=== PATIENT | male | born 1955 | race Caucasian/White ===

== ENCOUNTER 2018-02-04 17:33 | Inpatient (IN) | END 2018-02-12 19:20 | disposition home or self-care (01) | DRG 580 ==

== ENCOUNTER 2019-03-31 23:54 | Emergency (ER) | payer OTHER ==
[~2019-03-31] VITALS: Ht 154.9 cm; Wt 70.3 kg
[~2019-03-31 23:54] MED LIST: AMLO-145; BENA40TA56; HYDR-4011 PO; LEVO500T10 PO; LINA5TAB; Vancomycin Iv Per Pharmacy XX
[2019-04-01 00:02] VITALS: Ht 154.9 cm; Wt 70.3 kg
[2019-04-01] MEDS ORDERED: ONDANSETRON 4 MG INJ IV ONE (01:48)
[2019-04-01] MEDS ORDERED: SOD CHLORIDE 0.9% 500 ML IV ONE (02:00)
[2019-04-01] MEDS ORDERED: POLY17PO6 PO (03:42)
[2019-04-01] MEDS ORDERED: HYDR-842 PO (03:42)
--- NOTE | 2019-04-01 03:48 | ERD ---
ER Documentation Chief Complaint Chief Complaint nausea, vomiting, weak started this afternoon. hx liver tumor on chemo, HPI This is a pleasant 63-year-old male presents for nausea and vomiting and generalized weakness. History is significant for liver cancer, he is currently on chemotherapy, he denies any chest pain or shortness of breath. He has not had a fever. He denies any significant abdominal pain, his symptoms are inte rmittent. He has had no hematemesis ROS All systems reviewed and are negative except as per history of present illness. Medications Home Meds Active Scripts Polyethylene Glycol* (Miralax*) 17 Gm Powd.pack, 17 GM PO DAILY, #7 Prov:TIA LOPEZ MD 04/01/19 Hydroxyzine Hcl* (Atarax*) 25 Mg Tab, 25 MG PO Q6H PRN for ITCHING for 14 Days, TAB Prov:TIA LOPEZ MD 04/01/19 [Vancomycin Iv Per Pharmacy] 1 EA EACH No Conflict Check, 0 EA XX .PER PROTOCOL for 42 Days Prov:CARLIE CARDONA NP 02/12/18 Hydrocodone/Acetaminophen ([place] 5-325 Tablet) 1 Each Tablet, 1 EACH PO Q4, #30 TAB Prov:CARLIE CARDONA NP 02/12/18 Levofloxacin* (Levofloxacin*) 500 Mg Tablet, 500 MG PO DAILY, #42 TAB Prov:CARLIE CARDONA NP 02/12/18 Reported Medications Linagliptin (TRADJENTA) 5 Mg Tablet, 1, #30 02/04/18 Amlodipine Besylate* (Amlodipine Besylate*) 5 Mg Tablet, 1 TAB, #30 18 Benazepril Hcl* (Benazepril Hcl*) 40 Mg Tablet, 1 TAB, #30 18 Allergies Allergies: Coded Allergies: No Known Allergies (Verified Allergy, Unknown, 02/04/18) PMhx/Soc History of Surgery: Yes (3 laser on right eye, 2 laser on left eye, ret inoplasa, loose retina,) Anesthesia Reaction: Yes Hx Neurological Disorder: No Hx Respiratory Disorders: No Hx Cardiac Disorders: No Hx Psychiatric Problems: No Hx Miscellaneous Medical Probl: No Hx Alcohol Use: No Hx Substance Use: No Hx Tobacco Use: No Smoking Status: Never smoker Physical Exam Vitals Vital Signs Date Temp Pulse Resp B/P (MAP) Pulse Ox O2 O2 Flow FiO2 Time Delivery Rate 04/01/19 81 18 175/83 100 Room Air 01:15 (113) 04/01/19 Nasal 00:56 Cannula 04/01/19 98.4 89 16 204/90 100 00:02 (128) Physical Exam Const: Actively vomiting Head: Atraumatic Eyes: Normal Conjunctiva ENT: Normal External Ears, Nose and Mouth. Neck: Full range of motion. No meningismus. Resp: Clear to auscultation bilaterally Cardio: Regular rate and rhythm, no murmurs Abd: Soft, non tender, non distended, no rebound or guarding. Normal bowel sounds Skin: No petechiae or rashes Back: No midline or flank tenderness Ext: No cyanosis, or edema Neur: Awake and alert Psych: Normal Mood and Affect Result Diagram: 04/01/1911604/01/19116 Results 24 hrs Laboratory Tests Test 04/01/19 01:17 04/01/19 01:20 04/01/19 01:31 White Blood Count 3.7 10^3/ul Red Blood Count 2.77 10^6/ul Hemoglobin 8.2 g/dl Hematocrit 23.3 % Mean Corpuscular Volume 84.1 fl Mean Corpuscular Hemoglobin 29.6 pg Mean Corpuscular 35.2 g/dl Hemoglobin Concent Red Cell Distribution Width 14.8 % Platelet Count 74 10^3/UL Mean Platelet Volume 10.5 fl Immature Granulocytes % 0.300 % Neutrophils % 65.0 % Lymphocytes % 19.0 % Monocytes % 12.3 % Eosinophils % 2.9 % Basophils % 0.5 % Nucleated Red Blood Cells % 0.0 /100WBC Immature Granulocytes # 0.010 10^3/ul Neutrophils # 2.4 10^3/ul Lymphocytes # 0.7 10^3/ul Monocytes # 0.5 10^3/ul Eosinophils # 0.1 10^3/ul Basophils # 0.0 10^3/ul Nucleated Red Blood Cells # 0.0 10^3/ul Prothrombin Time 15.1 Sec Prothrombin Time Ratio 1.2 INR International 1.18 Normalized Ratio Activated Partial Thromboplast 37.5 Sec Time Sodium Level 131 mmol/L Potassium Level 4.6 mmol/L Chloride Level 100 mmol/L Carbon Dioxide Level 20 mmol/L Anion Gap 11 Blood Urea Nitrogen 27 mg/dl Creatinine 2.30 mg/dl Est Glomerular Filtrat 29 mL/min Rate mL/min Glucose Level 97 mg/dl Calcium Level 8.8 mg/dl Total Bilirubin 0.7 mg/dl Direct Bilirubin 0.00 mg/dl Indirect Bilirubin 0.7 mg/dl Aspartate Amino 37 IU/L Transf (AST/SGOT) Alanine 36 IU/L Aminotransferase (ALT/SGPT) Alkaline Phosphatase 284 IU/L Troponin I < 0.012 ng/ml Total Protein 7.9 g/dl Albumin 3.7 g/dl Globulin 4.20 g/dl Albumin/Globulin Ratio 0.88 POC Venous Lactate 1.4 mmol/L Urine Color YELLOW Urine Clarity CLEAR Urine pH 6.0 Urine Specific [place] 1.005 Urine Ketones NEGATIVE mg/dL Urine Nitrite NEGATIVE mg/dL Urine Bilirubin NEGATIVE mg/dL Urine Urobilinogen NEGATIVE mg/dL Urine Leukocyte Esterase NEGATIVE Karthik/ul Urine Microscopic RBC 1 /HPF Urine Microscopic WBC 0 /HPF Urine Hemoglobin NEGATIVE mg/dL Urine Glucose NEGATIVE mg/dL Urine Total Protein 2+ mg/dl Current Medications Medications Dose Sig/Jasper Start Time Status Last (Trade) Ordered Route PRN Stop Time Admin Dose Reason Admin Ondansetron 4 mg ONCE ONCE 04/01/19 DC HCl (Zofran IV 01:48 Inj) 04/01/19 01:49 Sodium 500 ml @ Q1H ONCE 04/01/19 DC 04/01/19 Chloride 500 mls/hr IV 02:00 01:58 04/01/19 02:59 Procedures/MDM 63-year-old male with a history of liver cancer presents for nausea and vomiting. I suspect that his symptoms are most likely related to his current treatment with chemotherapy. Patient was hydrated, and given antiemetics, he had relief in his symptoms. He did not have any abdominal pain, he had no fever, and a CT abdomen pelvis was negative. On reassessment, the patient felt significantly better and wished to go home, he endorsed generalized pruritus and a prescription for Atarax was prescribed, as well as MiraLAX for bowel regimen. At discharge she was in no distress. EKG: Rate/Rhythm: Normal Sinus Rhythm QRS, ST, T-waves: No changes consistent w/ acute ischemia Impression: No evidence of ischemia or arrhythmia Departure Diagnosis: Primary Impression: Nausea and vomiting Vomiting type: unspecified Vomiting Intractability: unspecified Qualified Codes: R11.2 - Nausea with vomiting, unspecified Condition: Stable Patient Instructions: Nausea and Vomiting-Adult Additional Instructions: Call your primary care doctor TOMORROW for an appointment during the next 2-3 days.See the doctor sooner or return here if your condition worsens before your appointment time. TIA LOPEZ MD Apr 01, 2019 03:48
[2019-04-01 04:20] VITALS: BP 160/80; PULSE 78; RESP 14
== END 2019-04-01 04:30 | disposition home or self-care (01) ==
LOC: E/R 23:54
DX: R11.2 Nausea with vomiting, unspecified (principal); C22.8 Malignant neoplasm of liver, primary, unspecified as to type; R07.9 Chest pain, unspecified; R10.9 Unspecified abdominal pain
CPT/HCPCS: 36415; 71045; 74176; 80053; 81001; 83605; 84484; 85025; 85610; 85730; 87040; 87086; 93005; J7040; Z7502; Z7610

== ENCOUNTER 2019-04-14 08:32 | Inpatient (IN) | payer OTHER ==
[~2019-04-14] VITALS: Ht 157.5 cm; Wt 66.2 kg
[~2019-04-14 08:32] MED LIST changes: +ALLO100T PO; +AMLO-147 PO; +AMOX1TAB PO; +HYDR-842 PO; +LENVIMA ORAL; +LINA5TAB PO; +LOSA25TA12 PO; +ONDA4TAB95 PO; +PANT40TA3 PO; +PENT400T9 PO; +POLY17PO6 PO; +TRAM50TA PO
[2019-04-14 18:20] VITALS: Ht 157.5 cm; Wt 66.2 kg
[2019-04-14 18:39] VITALS: BP 160/86; PULSE 79; RESP 18
[2019-04-14] MEDS ORDERED: CLONIDINE 0.2 MG/24 HR PATCH TRANSDERM SCH (19:30)
[2019-04-14] MEDS: DEXTROSE 5%-0.45% NACL 1,000 ML IV SCH (19:54)
[2019-04-14] MEDS: ONDANSETRON 4 MG INJ IV PRN (20:11)
[2019-04-14] MEDS: hydrALAzine 20 MG INJ IV PRN (20:12)
[2019-04-14 20:51] VITALS: BP 153/76; PULSE 80; RESP 19
[2019-04-14] MEDS: OCTREOTIDE 500 MCG in DEXTROSE 5% 49 ML IV SCH (20:53)
[2019-04-14 23:56] VITALS: BP 164/78; PULSE 79; RESP 19
[2019-04-15] VITALS (17 sets, daily range): BP systolic 80–188; BP diastolic 58–82; PULSE 72–93; RESP 16–20
[2019-04-15] MEDS: hydrALAzine 20 MG INJ IV PRN ×3 (00:03→19:44)
[2019-04-15] MEDS: ACCU-CHEK XX SCH (02:00)
--- NOTE | 2019-04-15 02:51 | CONS ---
DATE OF ADMISSION: 04/14/2019 DATE OF CONSULTATION: HISTORY OF PRESENT ILLNESS: The patient is a 63-year-old male who was originally at [facility] for hematemesis. He received blood transfusion and subsequently got transferred to this facility f or insurance purposes. The patient is also known to have a hepatoma, which is 7 cm in diameter, and is being treated with oral medication. Denies melena. 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 He required 2 units of packed cell RBC transfusion. SOCIAL HISTORY: He used to drink alcohol. ALLERGIES: NONE. REVIEW OF SYSTEMS: Negative. PHYSICAL EXAMINATION: GENERAL: Alert, awake, ambulating, not in distress. VITAL SIGNS: Stable. HEENT: Unremarkable. NECK: Supple, no thyromegaly, no lymphadenopathy. CARDIOVASCULAR: No murmur, gallop or click. LUNGS: Clear. ABDOMEN: Benign. EXTREMITIES: No edema. CENTRAL NERVOUS SYSTEM: Grossly within normal limits. LABORATORY DATA: Platelet count was 74 on 04/01/2019, INR was 1.2, again on 04/01/2019; his alkaline phosphatase was 284, bilirubin all within normal limits. Patient had an abdominal CAT scan which sh owed a cirrhotic liver, a 6.5 cm mass, mild ascites. IMPRESSION: 1. Hepatoma. 2. Diabetes mellitus. 3. Hypertension. 4. Upper gastrointestinal bleeding. PLAN: At this point, is to continue to monitor hemoglobin and hematocrit, octreotide, PPI and will p roceed with EGD. Discussed with the patient, he understood and has agreed for the procedure. Dictated By: GREGORY HENRIQUEZ/STEPHANIE Conf#: [id number] DID#: [id number] CC: TRAM ROGERS MD;*EndCC*
[2019-04-15] MEDS: PANTOPRAZOLE 40 MG INJ IV SCH ×2 (05:15→17:40)
[2019-04-15] MEDS: INSULIN ASPART [NOVOLOG] 3 ML PEN SC SCH ×5 (05:15→23:10)
[2019-04-15] MEDS: ONDANSETRON 4 MG INJ IV PRN (05:16)
[2019-04-15] MEDS ORDERED: GLUCOSE GEL 15 GRAM TUBE BUCCAL PRN (08:30)
[2019-04-15] MEDS ORDERED: DEXTROSE 50% 50 ML SYRINGE IV PRN ×2 (08:30)
[2019-04-15] MEDS ORDERED: GLUCOSE GEL 15 GRAM TUBE PO PRN ×2 (08:30)
[2019-04-15] MEDS ORDERED: GLUCAGON 1 MG INJ IM PRN (08:30)
[2019-04-15] MEDS: PHYTONADIONE 10 MG in DEXTROSE 5% 50 ML IVPB SCH (08:42)
[2019-04-15] MEDS: DEXTROSE 5%-0.45% NACL 1,000 ML IV SCH ×2 (08:43→22:45)
--- NOTE | 2019-04-15 11:50 | CONS ---
Assessment/Plan Assessment/Plan Assessment/Plan (Daily) IMPRESSION: 1. Hepatoma. 2. Diabetes mellitus. 3. Hypertension. 4. Upper gastrointestinal bleeding. 5. Fever 100 degree Plan Patient will be started empirically on Rocephin. Cirrhotic patient with a GI bleeding needs antibiotic to improve the mortality and morbidity. Consultation Date/Type/Reason Admit Date/Time Apr 14, 2019 at 17:07 Initial Consult Date Date/Time of Note DATE: 04/15/19 TIME: 11:49 24 HR Interval Summary Constitutional: no complaints, improved Exam/Review of Systems Exam Vitals Vital Signs Date Temp Pulse Resp B/P (MAP) Pulse Ox O2 O2 Flow FiO2 Time Delivery Rate 04/15/19 100.3 93 20 156/75 96 Room Air 10:41 (102) Intake and Output 04/14/19 04/14/19 04/15/19 1515:00 23:00 07:00 IntakeIntake Total 723 ml BalanceBalance 723 ml Constitutional: alert, oriented, well developed Psych: no complaints, nl mood/affect Head: normocephalic, atraumatic Eyes: nl conjunctiva, EOMI, nl lids, nl sclera, PERRL ENMT: nl external ears & nose, nl lips & teeth, nl nasal mucosa & septum Neck: supple, non-tender Respiratory: clear to auscultation, normal air movement Cardiovascular: regular rate and rhythm, nl pulses Gastrointestinal: soft, nl liver, spleen, non-tender Musculoskeletal: nl extremities to inspection, nl gait and stance Extremities: normal pulses 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, nl mental status, nl speech, nl strength Skin: nl turgor; No rash or lesions Lymph: nl lymph nodes Results Result Diagram: 04/15/19 0549 04/15/19 0549 Results 24hrs Laboratory Tests Test 04/14/19 19:30 04/14/19 19:31 04/14/19 23:59 04/15/19 05:15 White Blood Count 8.4 # Red Blood Count 4.13 #L Hemoglobin 11.9 #L Hematocrit 34.3 #L Mean Corpuscular 83.1 Volume Mean Corpuscular 28.8 L Hemoglobin Mean Corpuscular 34.7 Hemoglobin Concent Red Cell 16.4 H Distribution Width Platelet Count 35 #L Mean Platelet Volume Immature 0.500 H Granulocytes % Neutrophils % Segmented 75 Neutrophils % (Manual) Lymphocytes % Lymphocytes % 19 (Manual) Monocytes % Monocytes % (Manual) 6 Eosinophils % Basophils % Nucleated Red Blood 1 H Cells % Immature 0.040 H Granulocytes # Neutrophils # Lymphocytes (Manual) 1.5 Lymphocytes # Monocytes # Monocytes # (Manual) 0.5 Eosinophils # Basophils # Nucleated Red Blood Cells # Platelet Estimate DECREASED Giant Platelets 9 H Polychromasia 1+ Poikilocytosis 3+ Anisocytosis 1+ Macrocytosis 1+ Prothrombin Time 15.9 H Prothrombin Time 1.2 Ratio INR International 1.26 Normalized Ratio Activated 31.4 Partial Thromboplast Time Sodium Level 136 Potassium Level 4.7 Chloride Level 108 Carbon Dioxide Level 19 L Anion Gap 9 Blood Urea Nitrogen 34 H Creatinine 2.67 H Est Glomerular 24 L Filtrat Rate mL/min Glucose Level 107 Calcium Level 8.3 L Total Bilirubin 2.1 H Direct Bilirubin 0.00 Indirect Bilirubin 2.1 H Aspartate Amino 1059 H Transf (AST/SGOT) Alanine 812 H Aminotransferase (AL T/SGPT) Alkaline Phosphatase 215 H Total Protein 6.6 Albumin 3.1 L Globulin 3.50 H Albumin/Globulin 0.88 Ratio Bedside Glucose 130 142 Test 04/15/19 05:49 04/15/19 11:46 White Blood Count 8.2 Red Blood Count 4.00 L Hemoglobin 11.5 L Hematocrit 33.4 L Mean Corpuscular 83.5 Volume Mean Corpuscular 28.8 L Hemoglobin Mean Corpuscular 34.4 Hemoglobin Concent Red Cell 16.9 H Distribution Width Platelet Count 33 L Mean Platelet Volume 11.2 H Immature 0.500 H Granulocytes % Neutrophils % 82.1 H Lymphocytes % 7.8 L Monocytes % 9.0 Eosinophils % 0.4 Basophils % 0.2 Nucleated Red Blood 0.0 Cells % Immature 0.040 H Granulocytes # Neutrophils # 6.8 Lymphocytes # 0.6 L Monocytes # 0.7 Eosinophils # 0.0 Basophils # 0.0 Nucleated Red Blood 0.0 Cells # Sodium Level 135 Potassium Level 4.2 Chloride Level 108 Carbon Dioxide Level 18 L Anion Gap 9 Blood Urea Nitrogen 37 H Creatinine 2.63 H Est Glomerular 25 L Filtrat Rate mL/min Glucose Level 146 Calcium Level 8.4 Total Bilirubin 1.4 H Direct Bilirubin 0.00 Indirect Bilirubin 1.4 H Aspartate Amino 1242 H Transf (AST/SGOT) Alanine 1128 H Aminotransferase (AL T/SGPT) Alkaline Phosphatase 223 H Total Protein 6.4 Albumin 2.9 L Globulin 3.50 H Albumin/Globulin 0.82 Ratio Alpha Fetoprotein 2350.00 H Bedside Glucose 139 Medications Medication Current Medications Octreotide Acetate 500 mcg/ Dextrose 50 ml @ 2.5 mls/hr Q20H IV Last administered on 04/14/19at 20:53; Admin Dose 2.5 MLS/HR; Start 04/14/19 at 19:30 Pantoprazole (Protonix Iv) 40 mg BID@06,18 IV Last administered on 04/15/19at 05:15; Admin Dose 40 MG; Start 04/15/19 at 06:00 Dextrose/Sodium Chloride 1,000 ml @ 75 mls/hr [id number] IV Last administered on 04/15/19at 08:43; Admin Dose 75 MLS/HR; Start 04/14/19 at 19:30 Ondansetron HCl (Zofran Inj) 4 mg Q4H PRN IV NAUSEA AND/OR VOMITING Last administered on 04/15/19at 05:16; Admin Dose 4 MG; Start 04/14/19 at 19:30 Hydralazine HCl (Apresoline) 10 mg Q4H PRN IV HIGH BP Last administered on 04/15/19at 05:16; Admin Dose 10 MG; Start 04/14/19 at 19:30 Clonidine HCl (Catapres-Tts 2 Patch) 1 patch Q7D TRANSDERM Last administered on 04/14/19at 19:55; Admin Dose 1 PATCH; Start 04/14/19 at 19:30 Diagnostic Test (Pha) (Accu-Chek) 1 ea 02 XX ; Start 04/15/19 at 02:00 Insulin Aspart (Novolog Insulin Pen) NOVOLOG *MILD* ALGORITHM Q6 SC ; Start 04/15/19 at 00:00 Phytonadione 10 mg/Dextrose 51 ml @ 102 mls/hr DAILY IVPB Last administered on 04/15/19at 08:42; Admin Dose 102 MLS/HR; Start 04/15/19 at 09:00; Stop 04/18/19 at 09:00 Miscellaneous Information 1 ea NOTE XX ; Start 04/15/19 at 08:30 Glucose (Glutose) 15 gm Q15M PRN PO DECREASED GLUCOSE; Start 04/15/19 at 08:30 Glucose (Glutose) 22.5 gm Q15M PRN PO DECREASED GLUCOSE; Start 04/15/19 at 08:30 Dextrose (D50w Syringe) 25 ml Q15M PRN IV DECREASED GLUCOSE; Start 04/15/19 at 08:30 Dextrose (D50w Syringe) 50 ml Q15M PRN IV DECREASED GLUCOSE; Start 04/15/19 at 08:30 Glucagon (Glucagen) 1 mg Q15M PRN IM DECREASED GLUCOSE; Start 04/15/19 at 08:30 Glucose (Glutose) 15 gm Q15M PRN BUCCAL DECREASED GLUCOSE; Start 04/15/19 at 08:30 GREGORY SIMMONS MD Apr 15, 2019 11:50
--- NOTE | 2019-04-15 12:56 | PREAC ---
Date/Time of Note Date/Time of Note DATE: 04/15/19 TIME: 12:55 Anesthesia Eval and Record Evaluation Time Pre-Procedure Interview DATE: 04/15/19 TIME: 12:55 Age 63 Sex male NPO: 8 hrs Preoperative diagnosis upper GI bleed; cirrhosis Planned procedure EGD Past Medical History Past Medical History: Includes Cardio: HTN Endo: Diabetes Renal: CKD Hepatic: Cirrhosis, Other (hepatoma) Surgery & Anesthesia Issues No known issue Meds Anticoagulation: No Beta Donna within 24 hr: No Reason Beta Donna not given: Pt. not on B-Donna Active Scripts Polyethylene Glycol* (Miralax*) 17 Gm Powd.pack, 17 GM PO DAILY, #7 Prov:TIA LOPEZ MD 04/01/19 Hydroxyzine Hcl* (Atarax*) 25 Mg Tab, 25 MG PO Q6H PRN for ITCHING for 14 Days, TAB Prov:TIA LOPEZ MD 04/01/19 [Vancomycin Iv Per Pharmacy] 1 EA EACH No Conflict Check, 0 EA XX .PER PROTOCOL for 42 Days Prov:CARLIE CARDONA NP 02/12/18 Hydrocodone/Acetaminophen ([place] 5-325 Tablet) 1 Each Tablet, 1 EACH PO Q4, #30 TAB Prov:CARLIE CARDONA NP 02/12/18 Levofloxacin* (Levofloxacin*) 500 Mg Tablet, 500 MG PO DAILY, #42 TAB Prov:CARLIE CARDONA NP 02/12/18 Reported Medications Linagliptin (TRADJENTA) 5 Mg Tablet, 1, #30 02/04/18 Amlodipine Besylate* (Amlodipine Besylate*) 5 Mg Tablet, 1 TAB, #30 02/04/18 Benazepril Hcl* (Benazepril Hcl*) 40 Mg Tablet, 1 TAB, #30 02/04/18 Current Medications Octreotide Acetate 500 mcg/ Dextrose 50 ml @ 2.5 mls/hr Q20H IV Last administered on 04/14/19at 20:53; Admin Dose 2.5 MLS/HR; Start 04/14/19 at 19:30 Pantoprazole (Protonix Iv) 40 mg BID@06,18 IV Last administered on 04/15/19at 05:15; Admin Dose 40 MG; Start 04/15/19 at 06:00 Dextrose/Sodium Chloride 1,000 ml @ 75 mls/hr [id number] IV Last administered on 04/15/19at 08:43; Admin Dose 75 MLS/HR; Start 04/14/19 at 19:30 Ondansetron HCl (Zofran Inj) 4 mg Q4H PRN IV NAUSEA AND/OR VOMITING Last administered on 04/15/19at 05:16; Admin Dose 4 MG; Start 04/14/19 at 19:30 Hydralazine HCl (Apresoline) 10 mg Q4H PRN IV HIGH BP Last administered on 04/15/19at 05:16; Admin Dose 10 MG; Start 04/14/19 at 19:30 Clonidine HCl (Catapres-Tts 2 Patch) 1 patch Q7D TRANSDERM Last administered on 04/14/19at 19:55; Admin Dose 1 PATCH; Start 04/14/19 at 19:30 Diagnostic Test (Pha) (Accu-Chek) 1 ea 02 XX ; Start 04/15/19 at 02:00 Insulin Aspart (Novolog Insulin Pen) NOVOLOG *MILD* ALGORITHM Q6 SC ; Start 04/15/19 at 00:00 Phytonadione 10 mg/Dextrose 51 ml @ 102 mls/hr DAILY IVPB Last administered on 04/15/19at 08:42; Admin Dose 102 MLS/HR; Start 04/15/19 at 09:00; Stop 04/18/19 at 09:00 Miscellaneous Information 1 ea NOTE XX ; Start 04/15/19 at 08:30 Glucose (Glutose) 15 gm Q15M PRN PO DECREASED GLUCOSE; Start 04/15/19 at 08:30 Glucose (Glutose) 22.5 gm Q15M PRN PO DECREASED GLUCOSE; Start 04/15/19 at 08:30 Dextrose (D50w Syringe) 25 ml Q15M PRN IV DECREASED GLUCOSE; Start 04/15/19 at 08:30 Dextrose (D50w Syringe) 50 ml Q15M PRN IV DECREASED GLUCOSE; Start 04/15/19 at 08:30 Glucagon (Glucagen) 1 mg Q15M PRN IM DECREASED GLUCOSE; Start 04/15/19 at 08:30 Glucose (Glutose) 15 gm Q15M PRN BUCCAL DECREASED GLUCOSE; Start 04/15/19 at 08 :30 Ceftriaxone Sodium 50 ml @ 100 mls/hr Q24H IVPB ; Start 04/15/19 at 12:30 Meds reviewed: Yes Allergies Coded Allergies: No Known Allergies (Verified Allergy, Unknown, 02/04/18) Allergies Reviewed: Yes Labs/Studies Labs Reviewed: Reviewed by anesthesiologist Result Diagram: 04/15/19 0549 04/15/19 0549 Laboratory Tests 04/15/19 05:49 test: N/A Pre-procedure Exam Last vitals Vital Signs Date Temp Pulse Resp B/P (MAP) Pulse Ox O2 O2 Flow FiO2 Time Delivery Rate 04/15/19 100.3 93 20 156/75 96 Room Air 10:41 (102) Airway: Adequate mouth opening, Adequate thyromental dist Mallampati: Mallampati II Teeth: Normal Lung: Normal Heart: Normal ASA Physical Status ASA physical status: 3 Emergency: None Planned Anesthetic General/MAC: Mask Planned Pain Management Parenteral pain med Pre-operative Attestations Prior to commencing anesthesia and surgery, the patient was re-evaluated, there was verification of: *The patient's identity *The results of appropriate recent lab work and preoperative vital signs *The above evaluation not changing prior to induction *Anesthetic plan, risk benefits, alternative and complications discussed with patient/family; questions answered; patient/family understands, accepts and wishes to proceed. NAM MONTERO MD Apr 15, 2019 12:56
--- NOTE | 2019-04-15 13:26 | HP ---
Date/Time of Note Date/Time of Note DATE: 04/15/19 TIME: 13:12 Assessment/Plan VTE Prophylaxis Risk score (from [facility] [place] risk: 3 SCD applied (from [facility] [place] No SCD contraindicated: other Pharmacological prophylaxis: other Pharm contraindication: other Lines/Catheters IV Catheter Type (from [facility]): Peripheral IV Assessment/Plan Assessment/Plan # Upper gastrointestinal bleeding - Admit to tele - per GI ; Dr Malone - for EGD today - am CBC # Anemia ; 2/2/ above ; Hgb 11.5 today # Liver mass- 04/01/2019- CT- showed a poorly defined hypodense mass within the right lobe measuring 6.5 x 6.1 cm concerning for neoplasm. - Patient is under care of Dr Sulaiman Gomez- Oncologist; at [place]. Patient is unable to provide contact information about his oncologist. Patient is taking Lenvima 8 mg Po daily. - will get Oncology consult ; Dr Shepard notified # Hepatoma ; Elevated AFP- 2300. - will get Oncology consult ; Dr Shepard notified # Thrombocytopenia - - will get Oncology consult ; Dr Shepard notified # Diabetes mellitus - Hgb in am - Glycemic control # Hypertension. -continue management per primary team # Renal insufficiency Cr 2.63 today -management per nephrology # CKD-3 # Former smoker - reinforce smoking cessation # SCD for DVT prophylaxis Patient seen in collaboration with Dr Sorensen/staff Result Diagram: 04/15/19 0549 04/15/19 0549 Results 24hrs Laboratory Tests Test 04/14/19 19:30 04/14/19 19:31 04/14/19 23:59 04/15/19 05:15 White Blood Count 8.4 # Red Blood Count 4.13 #L Hemoglobin 11.9 #L Hematocrit 34.3 #L Mean Corpuscular 83.1 Volume Mean Corpuscular 28.8 L Hemoglobin Mean Corpuscular 34.7 Hemoglobin Concent Red Cell 16.4 H Distribution Width Platelet Count 35 #L Mean Platelet Volume Immature 0.500 H Granulocytes % Neutrophils % Segmented 75 Neutrophils % (Manual) Lymphocytes % Lymphocytes % 19 (Manual) Monocytes % Monocytes % (Manual) 6 Eosinophils % Basophils % Nucleated Red Blood 1 H Cells % Immature 0.040 H Granulocytes # Neutrophils # Lymphocytes (Manual) 1.5 Lymphocytes # Monocytes # Monocytes # (Manual) 0.5 Eosinophils # Basophils # Nucleated Red Blood Cells # Platelet Estimate DECREASED Giant Platelets 9 H Polychromasia 1+ Poikilocytosis 3+ Anisocytosis 1+ Macrocytosis 1+ Prothrombin Time 15.9 H Prothrombin Time 1.2 Ratio INR International 1.26 Normalized Ratio Activated 31.4 Partial Thromboplast Time Sodium Level 136 Potassium Level 4.7 Chloride Level 108 Carbon Dioxide Level 19 L Anion Gap 9 Blood Urea Nitrogen 34 H Creatinine 2.67 H Est Glomerular 24 L Filtrat Rate mL/min Glucose Level 107 Calcium Level 8.3 L Total Bilirubin 2.1 H Direct Bilirubin 0.00 Indirect Bilirubin 2.1 H Aspartate Amino 1059 H Transf (AST/SGOT) Alanine 812 H Aminotransferase (AL T/SGPT) Alkaline Phosphatase 215 H Total Protein 6.6 Albumin 3.1 L Globulin 3.50 H Albumin/Globulin 0.88 Ratio Bedside Glucose 130 142 Test 04/15/19 05:49 04/15/19 11:46 White Blood Count 8.2 Red Blood Count 4.00 L Hemoglobin 11.5 L Hematocrit 33.4 L Mean Corpuscular 83.5 Volume Mean Corpuscular 28.8 L Hemoglobin Mean Corpuscular 34.4 Hemoglobin Concent Red Cell 16.9 H Distribution Width Platelet Count 33 L Mean Platelet Volume 11.2 H Immature 0.500 H Granulocytes % Neutrophils % 82.1 H Lymphocytes % 7.8 L Monocytes % 9.0 Eosinophils % 0.4 Basophils % 0.2 Nucleated Red Blood 0.0 Cells % Immature 0.040 H Granulocytes # Neutrophils # 6.8 Lymphocytes # 0.6 L Monocytes # 0.7 Eosinophils # 0.0 Basophils # 0.0 Nucleated Red Blood 0.0 Cells # Sodium Level 135 Potassium Level 4.2 Chloride Level 108 Carbon Dioxide Level 18 L Anion Gap 9 Blood Urea Nitrogen 37 H Creatinine 2.63 H Est Glomerular 25 L Filtrat Rate mL/min Glucose Level 146 Calcium Level 8.4 Total Bilirubin 1.4 H Direct Bilirubin 0.00 Indirect Bilirubin 1.4 H Aspartate Amino 1242 H Transf (AST/SGOT) Alanine 1128 H Aminotransferase (AL T/SGPT) Alkaline Phosphatase 223 H Total Protein 6.4 Albumin 2.9 L Globulin 3.50 H Albumin/Globulin 0.82 Ratio Alpha Fetoprotein 2350.00 H Bedside Glucose 139 HPI/ROS Admit Date/Time Admit Date/Time Apr 14, 2019 at 17:07 Hx of Present Illness 1300- C/O abdominal pain; going for EGD ROS The patient is a 63-year-old male PMHx of HTN, DM II, HL, CKD III due to DM nep hropathy, hepatoma. The patient has have a hepatoma, which is 7 cm in diameter, and patient is on oral medication. Patient was originally seen at [facility] for hematemesis and eceived blood transfusion . Subsequently he was transferred to [facility] for insurance purposes. Denies melena; chest pain; shortness of breath, no or [employer] problems; denies any bilateral calf pain . Patient is admitted under dr Sorensen. Plan of care staff. Patient is going to EGD now. Coded Allergies: No Known Allergies Past Medical History Medical History: high cholesterol, hypertension, renal disease, other (Liver cirrhosis Past Surgical History Past Surgical Hx: other (Left foot abscess I & D, Cataract surgery) Family History Significant Family History: no pertinent family hx Social History Alcohol Use: none Smoking Status: Former smoker Drug Use: none ENT: no complaints Respiratory: no complaints Cardiovascular: no complaints Gastrointestinal: pain Genitourinary: no complaints Musculoskeletal: no complaints Skin: no complaints Neurologic: no complaints Endocrine: no complaints Psychological: nl mood/affect PMH/Family/Social Past Medical History Medications Current Medications Octreotide Acetate 500 mcg/ Dextrose 50 ml @ 2.5 mls/hr Q20H IV Last administered on 04/14/19at 20:53; Admin Dose 2.5 MLS/HR; Start 04/14/19 at 19:30 Pantoprazole (Protonix Iv) 40 mg BID@06,18 IV Last administered on 04/15/19at 05:15; Admin Dose 40 MG; Start 04/15/19 at 06:00 Dextrose/Sodium Chloride 1,000 ml @ 75 mls/hr [id number] IV Last administered on 04/15/19at 08:43; Admin Dose 75 MLS/HR; Start 04/14/19 at 19:30 Ondansetron HCl (Zofran Inj) 4 mg Q4H PRN IV NAUSEA AND/OR VOMITING Last administered on 04/15/19at 05:16; Admin Dose 4 MG; Start 04/14/19 at 19:30 Hydralazine HCl (Apresoline) 10 mg Q4H PRN IV HIGH BP Last administered on 04/15/19at 05:16; Admin Dose 10 MG; Start 04/14/19 at 19:30 Clonidine HCl (Catapres-Tts 2 Patch) 1 patch Q7D TRANSDERM Last administered on 04/14/19at 19:55; Admin Dose 1 PATCH; Start 04/14/19 at 19:30 Diagnostic Test (Pha) (Accu-Chek) 1 ea 02 XX ; Start 04/15/19 at 02:00 Insulin Aspart (Novolog Insulin Pen) NOVOLOG *MILD* ALGORITHM Q6 SC ; Start 04/15/19 at 00:00 Phytonadione 10 mg/Dextrose 51 ml @ 102 mls/hr DAILY IVPB Last administered on 04/15/19at 08:42; Admin Dose 102 MLS/HR; Start 04/15/19 at 09:00; Stop 04/18/19 at 09:00 Miscellaneous Information 1 ea NOTE XX ; Start 04/15/19 at 08:30 Glucose (Glutose) 15 gm Q15M PRN PO DECREASED GLUCOSE; Start 04/15/19 at 08:30 Glucose (Glutose) 22.5 gm Q15M PRN PO DECREASED GLUCOSE; Start 04/15/19 at 08:30 Dextrose (D50w Syringe) 25 ml Q15M PRN IV DECREASED GLUCOSE; Start 04/15/19 at 08:30 Dextrose (D50w Syringe) 50 ml Q15M PRN IV DECREASED GLUCOSE; Start 04/15/19 at 08:30 Glucagon (Glucagen) 1 mg Q15M PRN IM DECREASED GLUCOSE; Start 04/15/19 at 08:30 Glucose (Glutose) 15 gm Q15M PRN BUCCAL DECREASED GLUCOSE; Start 04/15/19 at 08:30 Ceftriaxone Sodium 50 ml @ 100 mls/hr Q24H IVPB ; Start 04/15/19 at 12:30 Coded Allergies: No Known Allergies (Verified Allergy, Unknown, 02/04/18) Social History Smoking Status: Former smoker Exam/Review of Systems Vital Signs Vitals Vital Signs Date Temp Pulse Resp B/P (MAP) Pulse Ox O2 O2 Flow FiO2 Time Delivery Rate 04/15/19 99.1 83 16 156/78 99 Room Air 12:57 (104) Intake and Output 04/14/19 04/14/19 04/15/19 1515:00 23:00 07:00 IntakeIntake Total 723 ml BalanceBalance 723 ml Exam Constitutional: alert, well developed Psych: nl mood/affect Head: normocephalic Eyes: nl lids, nl sclera ENMT: nl external ears & nose Neck: non-tender Respiratory: clear to auscultation Cardiovascular: nl pulses, other (S1S2) Gastrointestinal: soft, tender Musculoskeletal: nl extremities to inspection Extremities: normal pulses Neurological: nl mental status, nl speech Skin: nl turgor Lymph: nontender DOMINIK CHÁVEZ Apr 15, 2019 13:23
[2019-04-15] MEDS ORDERED: PROPOFOL 40 ML ONE (13:35)
[2019-04-15] MEDS ORDERED: LIDOCAINE 2% (SDV) 5 ML INJ ONE (13:35)
--- NOTE | 2019-04-15 14:07 | PAC ---
Date/Time of Note Date/Time of Note DATE: 04/15/19 TIME: 14:07 Post-Anesthesia Notes Post-Anesthesia Note Last documented vital signs Vital Signs Date Temp Pulse Resp B/P (MAP) Pulse Ox O2 O2 Flow FiO2 Time Delivery Rate 04/15/19 99.1 83 16 156/78 99 Room Air 12:57 (104) Activity: WNL Respiratory function: WNL Cardiovascular function: WNL Mental status: Baseline Pain reasonably controlled: Yes Hydration appropriate: Yes Nausea/Vomiting absent: Yes Comments BP: 90/60 HR: 79 RR: 15 T: 98 SaO2: 100% NAM MONTERO MD Apr 15, 2019 14:07
[2019-04-15] MEDS ORDERED: HYDROmorphONE 1 MG/5 ML IV SYRINGE IV PRN (14:30)
[2019-04-15] MEDS ORDERED: ONDANSETRON 4 MG INJ IV PRN (14:30)
[2019-04-15] MEDS ORDERED: EPHEDrine 25 MG/5 ML SYG IV PRN (14:30)
[2019-04-15] MEDS: PROPRANOLOL 20 MG TAB PO SCH ×2 (15:23→23:09)
--- NOTE | 2019-04-15 15:29 | CONS ---
Assessment/Plan Assessment/Plan Assessment/Plan (Daily) 1. acute kidney injury on CKD III due to Prerenal azotemia from GI bleeding + decompensated liver cirrhosis 2. Acute decompensated liver cirrhosis 3. Upper GI bleeding s/P GI consult 3. H/o Hepatoma with acute transaminitis 4. H/o HTN 5. H/o HL 6. H/o DM II Plan: s/p GI consult , plan is to monitor H/H and prn transfusion , plan for EGD as per GI , Protonix 40mg IV BID, Octreotide drip as per GI I will give Iv albumin 25% 100ml Q 8 hr x 6 doses IVF D51/2 NS at 60 cc/hr renally dose all medications and replace electrolytes Hold off on lasix and aldactone for now due to KHARI on CKD , Continue propranolol 20mg TID Renal US in 01/2018- The right kidney is normal in size measuring 11.7 cm in length. The left kidney is normal in size measuring 11.9 cm in length. The renal echotexture is normal. There is no mass, calculus, or obstructive uropathy. No perinephric fluid collection is seen. will follow up , Thanks for consultation Consultation Date/Type/Reason Admit Date/Time Apr 14, 2019 at 17:07 Date of Consultation: Apr 15, 2019 Type of Consult NEPHROLOGY Reason for Consultation acute kidney injury on CKD III Requesting Provider: TRAM ROGERS MD Date/Time of Note DATE: 04/15/19 TIME: 15:28 Hx of Present Illness 63 M with PMHx of HTN, DM II, HL, CKD III due to DM nephropathy, who has been admitted for UGI bleeding- GI consulted on the case, On admission pt was noted to have BUN/cr 34/2.67, [id number]- renal has been consulted for KHARI on CKD III, Metabolic acidosis. no NSAID use, no h/o Kidney stone, no h/o Blood in urine Constitutional: no complaints Eyes: no complaints ENT: no complaints Respiratory: no complaints Cardiovascular: no complaints Gastrointestinal: pain, nausea, vomiting Genitourinary: flank pain Musculoskeletal: no complaints Skin: no complaints Neurologic: no complaints Endocrine: no complaints Lymphatic: no complaints Psychological: no complaints Immunologic: no complaints Past Medical History Medical History: high cholesterol, hypertension, renal disease, other (Liver cirrhosis ) Home Meds Active Scripts Polyethylene Glycol* (Miralax*) 17 Gm Powd.pack, 17 GM PO DAILY, #7 Prov:TIA LOPEZ MD 04/01/19 Hydroxyzine Hcl* (Atarax*) 25 Mg Tab, 25 MG PO Q6H PRN for ITCHING for 14 Days, TAB Prov:TIA LOPEZ MD 04/01/19 [Vancomycin Iv Per Pharmacy] 1 EA EACH No Conflict Check, 0 EA XX .PER PROTOCOL for 42 Days Prov:CARLIE CARDONA NP 02/12/18 Hydrocodone/Acetaminophen (Union 5-325 Tablet) 1 Each Tablet, 1 EACH PO Q4, #30 TAB Prov:CARLIE CARDONA NP 02/12/18 Levofloxacin* (Levofloxacin*) 500 Mg Tablet, 500 MG PO DAILY, #42 TAB Prov:CARLIE CARDONA NP 02/12/18 Reported Medications Linagliptin (TRADJENTA) 5 Mg Tablet, 1, #30 02/04/18 Amlodipine Besylate* (Amlodipine Besylate*) 5 Mg Tablet, 1 TAB, #30 02/04/18 Benazepril Hcl* (Benazepril Hcl*) 40 Mg Tablet, 1 TAB, #30 02/04/18 Medications Current Medications Octreotide Acetate 500 mcg/ Dextrose 50 ml @ 2.5 mls/hr Q20H IV Last administered on 04/14/19at 20:53; Admin Dose 2.5 MLS/HR; Start 04/14/19 at 19:30 Pantoprazole (Protonix Iv) 40 mg BID@06,18 IV Last administered on 04/15/19at 05:15; Admin Dose 40 MG; Start 04/15/19 at 06:00 Dextrose/Sodium Chloride 1,000 ml @ 75 mls/hr [id number] IV Last administered on 04/15/19at 08:43; Admin Dose 75 MLS/HR; Start 04/14/19 at 19:30 Ondansetron HCl (Zofran Inj) 4 mg Q4H PRN IV NAUSEA AND/OR VOMITING Last administered on 04/15/19at 05:16; Admin Dose 4 MG; Start 04/14/19 at 19:30 Hydralazine HCl (Apresoline) 10 mg Q4H PRN IV HIGH BP Last administered on 04/15/19at 05:16; Admin Dose 10 MG; Start 04/14/19 at 19:30 Clonidine HCl (Catapres-Tts 2 Patch) 1 patch Q7D TRANSDERM Last administered on 04/14/19at 19:55; Admin Dose 1 PATCH; Start 04/14/19 at 19:30 Diagnostic Test (Pha) (Accu-Chek) 1 ea 02 XX ; Start 04/15/19 at 02:00 Insulin Aspart (Novolog Insulin Pen) NOVOLOG *MILD* ALGORITHM Q6 SC ; Start 04/15/19 at 00:00 Phytonadione 10 mg/Dextrose 51 ml @ 102 mls/hr DAILY IVPB Last administered on 04/15/19at 08:42; Admin Dose 102 MLS/HR; Start 04/15/19 at 09:00; Stop 04/18/19 at 09:00 Miscellaneous Information 1 ea NOTE XX ; Start 04/15/19 at 08:30 Glucose (Glutose) 15 gm Q15M PRN PO DECREASED GLUCOSE; Start 04/15/19 at 08:30 Glucose (Glutose) 22.5 gm Q15M PRN PO DECREASED GLUCOSE; Start 04/15/19 at 08:30 Dextrose (D50w Syringe) 25 ml Q15M PRN IV DECREASED GLUCOSE; Start 04/15/19 at 08:30 Dextrose (D50w Syringe) 50 ml Q15M PRN IV DECREASED GLUCOSE; Start 04/15/19 at 08:30 Glucagon (Glucagen) 1 mg Q15M PRN IM DECREASED GLUCOSE; Start 04/15/19 at 08:30 Glucose (Glutose) 15 gm Q15M PRN BUCCAL DECREASED GLUCOSE; Start 04/15/19 at 08:30 Ceftriaxone Sodium 50 ml @ 100 mls/hr Q24H IVPB ; Start 04/15/19 at 12:30 Propranolol HCl (Inderal) 20 mg BID PO Last administered on 04/15/19at 15:23; Admin Dose 20 MG; Start 04/15/19 at 14:00 Ondansetron HCl (Zofran Inj) 4 mg PACU ORDER PRN IV NAUSEA/VOMITING; Start 04/15/19 at 14:30; Stop 04/15/19 at 20:00 Ephedrine Sulfate 5 mg PACU ORDER PRN IV BLOOD PRESSURE SUPPORT; Start 04/15/19 at 14:30; Stop 04/15/19 at 20:00 Hydromorphone HCl (Dilaudid) 0.4 mg PACU PRN IV PAIN; Start 04/15/19 at 14:30; Stop 04/15/19 at 20:00 Allergies: Coded Allergies: No Known Allergies (Verified Allergy, Unknown, 02/04/18) Past Surgical History Past Surgical Hx: other (Left foot abscess I & D, Cataract surgery) Family History Significant Family History: no pertinent family hx Social History Alcohol Use: none Smoking Status: Former smoker Drug Use: none Exam/Review of Systems Exam Vitals Vital Signs Date Temp Pulse Resp B/P (MAP) Pulse Ox O2 O2 Flow FiO2 Time Delivery Rate 04/15/19 99.0 81 20 133/70 98 Room Air 14:53 (91) 04/15/19 2.0 14:39 Intake and Output 04/14/19 04/14/19 04/15/19 1515:00 23:00 07:00 IntakeIntake Total 723 ml BalanceBalance 723 ml Constitutional: alert Psych: no complaints Head: normocephalic Eyes: nl conjunctiva ENMT: nl external ears & nose Neck: supple, non-tender Respiratory: clear to auscultation, normal air movement Cardiovascular: regular rate and rhythm, nl pulses Gastrointestinal: soft, non-tender Musculoskeletal: nl extremities to inspection Extremities: normal pulses Neurological: [employer] II-XII intact, nl mental status, nl speech, nl strength Skin: nl turgor Lymph: nl lymph nodes Results Result Diagram: 04/15/19 0549 04/15/19 0549 Results 24hrs Laboratory Tests Test 04/14/19 19:30 04/14/19 19:31 04/14/19 23:59 04/15/19 05:15 White Blood Count 8.4 # Red Blood Count 4.13 #L Hemoglobin 11.9 #L Hematocrit 34.3 #L Mean Corpuscular 83.1 Volume Mean Corpuscular 28.8 L Hemoglobin Mean Corpuscular 34.7 Hemoglobin Concent Red Cell 16.4 H Distribution Width Platelet Count 35 #L Mean Platelet Volume Immature 0.500 H Granulocytes % Neutrophils % Segmented 75 Neutrophils % (Manual) Lymphocytes % Lymphocytes % 19 (Manual) Monocytes % Monocytes % (Manual) 6 Eosinophils % Basophils % Nucleated Red Blood 1 H Cells % Immature 0.040 H Granulocytes # Neutrophils # Lymphocytes (Manual) 1.5 Lymphocytes # Monocytes # Monocytes # (Manual) 0.5 Eosinophils # Basophils # Nucleated Red Blood Cells # Platelet Estimate DECREASED Giant Platelets 9 H Polychromasia 1+ Poikilocytosis 3+ Anisocytosis 1+ Macrocytosis 1+ Prothrombin Time 15.9 H Prothrombin Time 1.2 Ratio INR International 1.26 Normalized Ratio Activated 31.4 Partial Thromboplast Time Sodium Level 136 Potassium Level 4.7 Chloride Level 108 Carbon Dioxide Level 19 L Anion Gap 9 Blood Urea Nitrogen 34 H Creatinine 2.67 H Est Glomerular 24 L Filtrat Rate mL/min Glucose Level 107 Calcium Level 8.3 L Total Bilirubin 2.1 H Direct Bilirubin 0.00 Indirect Bilirubin 2.1 H Aspartate Amino 1059 H Transf (AST/SGOT) Alanine 812 H Aminotransferase (AL T/SGPT) Alkaline Phosphatase 215 H Total Protein 6.6 Albumin 3.1 L Globulin 3.50 H Albumin/Globulin 0.88 Ratio Bedside Glucose 130 142 Test 04/15/19 05:49 04/15/19 11:46 White Blood Count 8.2 Red Blood Count 4.00 L Hemoglobin 11.5 L Hematocrit 33.4 L Mean Corpuscular 83.5 Volume Mean Corpuscular 28.8 L Hemoglobin Mean Corpuscular 34.4 Hemoglobin Concent Red Cell 16.9 H Distribution Width Platelet Count 33 L Mean Platelet Volume 11.2 H Immature 0.500 H Granulocytes % Neutrophils % 82.1 H Lymphocytes % 7.8 L Monocytes % 9.0 Eosinophils % 0.4 Basophils % 0.2 Nucleated Red Blood 0.0 Cells % Immature 0.040 H Granulocytes # Neutrophils # 6.8 Lymphocytes # 0.6 L Monocytes # 0.7 Eosinophils # 0.0 Basophils # 0.0 Nucleated Red Blood 0.0 Cells # Sodium Level 135 Potassium Level 4.2 Chloride Level 108 Carbon Dioxide Level 18 L Anion Gap 9 Blood Urea Nitrogen 37 H Creatinine 2.63 H Est Glomerular 25 L Filtrat Rate mL/min Glucose Level 146 Calcium Level 8.4 Total Bilirubin 1.4 H Direct Bilirubin 0.00 Indirect Bilirubin 1.4 H Aspartate Amino 1242 H Transf (AST/SGOT) Alanine 1128 H Aminotransferase (AL T/SGPT) Alkaline Phosphatase 223 H Total Protein 6.4 Albumin 2.9 L Globulin 3.50 H Albumin/Globulin 0.82 Ratio Alpha Fetoprotein 2350.00 H Bedside Glucose 139 Medications Medication Current Medications Octreotide Acetate 500 mcg/ Dextrose 50 ml @ 2.5 mls/hr Q20H IV Last administered on 04/14/19at 20:53; Admin Dose 2.5 MLS/HR; Start 04/14/19 at 19:30 Pantoprazole (Protonix Iv) 40 mg BID@06,18 IV Last administered on 04/15/19at 05:15; Admin Dose 40 MG; Start 04/15/19 at 06:00 Dextrose/Sodium Chloride 1,000 ml @ 75 mls/hr [id number] IV Last administered on 04/15/19at 08:43; Admin Dose 75 MLS/HR; Start 04/14/19 at 19:30 Ondansetron HCl (Zofran Inj) 4 mg Q4H PRN IV NAUSEA AND/OR VOMITING Last administered on 04/15/19at 05:16; Admin Dose 4 MG; Start 04/14/19 at 19:30 Hydralazine HCl (Apresoline) 10 mg Q4H PRN IV HIGH BP Last administered on 04/15/19at 05:16; Admin Dose 10 MG; Start 04/14/19 at 19:30 Clonidine HCl (Catapres-Tts 2 Patch) 1 patch Q7D TRANSDERM Last administered on 04/14/19at 19:55; Admin Dose 1 PATCH; Start 04/14/19 at 19:30 Diagnostic Test (Pha) (Accu-Chek) 1 ea 02 XX ; Start 04/15/19 at 02:00 Insulin Aspart (Novolog Insulin Pen) NOVOLOG *MILD* ALGORITHM Q6 SC ; Start 04/15/19 at 00:00 Phytonadione 10 mg/Dextrose 51 ml @ 102 mls/hr DAILY IVPB Last administered on 04/15/19at 08:42; Admin Dose 102 MLS/HR; Start 04/15/19 at 09:00; Stop 04/18/19 at 09:00 Miscellaneous Information 1 ea NOTE XX ; Start 04/15/19 at 08:30 Glucose (Glutose) 15 gm Q15M PRN PO DECREASED GLUCOSE; Start 04/15/19 at 08:30 Glucose (Glutose) 22.5 gm Q15M PRN PO DECREASED GLUCOSE; Start 04/15/19 at 08:30 Dextrose (D50w Syringe) 25 ml Q15M PRN IV DECREASED GLUCOSE; Start 04/15/19 at 08:30 Dextrose (D50w Syringe) 50 ml Q15M PRN IV DECREASED GLUCOSE; Start 04/15/19 at 08:30 Glucagon (Glucagen) 1 mg Q15M PRN IM DECREASED GLUCOSE; Start 04/15/19 at 08:30 Glucose (Glutose) 15 gm Q15M PRN BUCCAL DECREASED GLUCOSE; Start 04/15/19 at 08:30 Ceftriaxone Sodium 50 ml @ 100 mls/hr Q24H IVPB ; Start 04/15/19 at 12:30 Propranolol HCl (Inderal) 20 mg BID PO Last administered on 04/15/19at 15:23; Admin Dose 20 MG; Start 04/15/19 at 14:00 Ondansetron HCl (Zofran Inj) 4 mg PACU ORDER PRN IV NAUSEA/VOMITING; Start 04/15/19 at 14:30; Stop 04/15/19 at 20:00 Ephedrine Sulfate 5 mg PACU ORDER PRN IV BLOOD PRESSURE SUPPORT; Start 04/15/19 at 14:30; Stop 04/15/19 at 20:00 Hydromorphone HCl (Dilaudid) 0.4 mg PACU PRN IV PAIN; Start 04/15/19 at 14:30; Stop 04/15/19 at 20:00 ANTONINA VELIZ MD Apr 15, 2019 15:29
[2019-04-15] MEDS: OCTREOTIDE 500 MCG in DEXTROSE 5% 49 ML IV SCH (15:56)
[2019-04-15] MEDS: ALBUMIN HUMAN 25% 100 ML IV SCH (17:52)
[2019-04-15] MEDS: CEFTRIAXONE 1 GM/50 ML (PMX) 50 ML IVPB SCH (21:27)
[2019-04-16 00:08] VITALS: BP 139/67; PULSE 72; RESP 19
[2019-04-16] MEDS: ALBUMIN HUMAN 25% 100 ML IV SCH ×3 (01:27→17:16)
[2019-04-16] MEDS: ACCU-CHEK XX SCH (02:00)
[2019-04-16] MEDS: INSULIN ASPART [NOVOLOG] 3 ML PEN SC SCH ×4 (06:00→21:13)
[2019-04-16] MEDS: PANTOPRAZOLE 40 MG INJ IV SCH ×2 (06:05→17:15)
[2019-04-16 07:24] VITALS: BP 150/73; PULSE 68; RESP 18
[2019-04-16] MEDS: PHYTONADIONE 10 MG in DEXTROSE 5% 50 ML IVPB SCH (08:36)
[2019-04-16] MEDS: PROPRANOLOL 20 MG TAB PO SCH ×2 (08:37→21:11)
--- NOTE | 2019-04-16 09:31 | CONS ---
Assessment/Plan Assessment/Plan Assessment/Plan (Daily) Assessment 1. acute kidney injury on CKD III due to Prerenal azotemia from GI bleeding + decompensated liver cirrhosis 2. Acute decompensated liver cirrhosis 3. Upper GI bleeding 3. H/o Hepatoma with acute transaminitis 4. EGD 04/15/19: esophageal varices s/p banding with hemostasis 5. H/o HL 6. H/o DM II Plan: continue Protonix 40mg IV BID agree wtih Iv albumin 25% 100ml Q 8 hr x 6 doses Continue propranolol 20mg TID advance diet to renal diet Consultation Date/Type/Reason Admit Date/Time Apr 14, 2019 at 17:07 Initial Consult Date 04/15/19 Type of Consult GI Requesting Provider: TRAM ROGERS MD Date/Time of Note DATE: 04/16/19 TIME: 09:27 24 HR Interval Summary Free Text/Dictation no hematemesis Constitutional: improved Exam/Review of Systems Exam Vitals Vital Signs Date Temp Pulse Resp B/P (MAP) Pulse Ox O2 O2 Flow FiO2 Time Delivery Rate 04/16/19 98.2 68 18 150/73 99 Room Air 07:24 (98) 04/15/19 2.0 14:39 Intake and Output 04/15/19 04/15/19 04/16/19 1515:00 23:00 07:00 IntakeIntake Total 300 ml 318 ml 100 ml BalanceBalance 300 ml 318 ml 100 ml Constitutional: alert, oriented, well developed Psych: no complaints, nl mood/affect Head: normocephalic, atraumatic Eyes: nl conjunctiva, EOMI, nl lids ENMT: nl external ears & nose, nl lips & teeth, nl nasal mucosa & septum Neck: supple, non-tender Respiratory: clear to auscultation, normal air movement Cardiovascular: regular rate and rhythm, nl pulses Gastrointestinal: soft, non-tender, bowel sounds Results Result Diagram: 04/16/19 0554 04/16/19 0554 Results 24hrs Laboratory Tests Test 04/15/19 11:46 04/15/19 17:39 04/15/19 23:10 04/16/19 05:54 Bedside Glucose 139 156 145 White Blood Count 8.8 Red Blood Count 3.17 #L Hemoglobin 9.5 L Hematocrit 26.9 L Mean Corpuscular 84.9 Volume Mean Corpuscular 30.0 Hemoglobin Mean Corpuscular 35.3 Hemoglobin Concent Red Cell 16.9 H Distribution Width Platelet Count 29 *L Mean Platelet Volume 10.7 H Immature 1.000 H Granulocytes % Neutrophils % 78.6 H Lymphocytes % 9.8 L Monocytes % 10.4 Eosinophils % 0.1 Basophils % 0.1 Nucleated Red Blood 0.0 Cells % Immature 0.090 H Granulocytes # Neutrophils # 6.9 Lymphocytes # 0.9 Monocytes # 0.9 Eosinophils # 0.0 Basophils # 0.0 Nucleated Red Blood 0.0 Cells # Sodium Level 135 Potassium Level 3.8 Chloride Level 108 Carbon Dioxide Level 18 L Anion Gap 9 Blood Urea Nitrogen 36 H Creatinine 2.48 H Est Glomerular 27 L Filtrat Rate mL/min Glucose Level 145 Calcium Level 8.2 L Test 04/16/19 06:04 Bedside Glucose 138 Medications Medication Current Medications Octreotide Acetate 500 mcg/ Dextrose 50 ml @ 2.5 mls/hr Q20H IV Last administered on 04/15/19 15:56; Admin Dose 2.5 MLS/HR; Start 04/14/19 at 19:30 Pantoprazole (Protonix Iv) 40 mg BID@06,18 IV Last administered on 04/16/19 06:05; Admin Dose 40 MG; Start 04/15/19 at 06:00 Dextrose/Sodium Chloride 1,000 ml @ 60 mls/hr [id number] IV Last administered on 04/15/19 08:43; Admin Dose 75 MLS/HR; Start 04/14/19 at 19:30 Ondansetron HCl (Zofran Inj) 4 mg Q4H PRN IV NAUSEA AND/OR VOMITING Last administered on 04/15/19 05:16; Admin Dose 4 MG; Start 04/14/19 at 19:30 Hydralazine HCl (Apresoline) 10 mg Q4H PRN IV HIGH BP Last administered on 04/15/19 19:44; Admin Dose 10 MG; Start 04/14/19 at 19:30 Clonidine HCl (Catapres-Tts 2 Patch) 1 patch Q7D TRANSDERM Last administered on 04/14/19 19:55; Admin Dose 1 PATCH; Start 04/14/19 at 19:30 Diagnostic Test (Pha) (Accu-Chek) 1 ea 02 XX ; Start 04/15/19 at 02:00 Insulin Aspart (Novolog Insulin Pen) NOVOLOG *MILD* ALGORITHM Q6 SC ; Start 04/15/19 at 00:00 Phytonadione 10 mg/Dextrose 51 ml @ 102 mls/hr DAILY IVPB Last administered on 04/16/19at 08:36; Admin Dose 102 MLS/HR; Start 04/15/19 at 09:00; Stop 04/18/19 at 09:00 Miscellaneous Information 1 ea NOTE XX ; Start 04/15/19 at 08:30 Glucose (Glutose) 15 gm Q15M PRN PO DECREASED GLUCOSE; Start 04/15/19 at 08:30 Glucose (Glutose) 22.5 gm Q15M PRN PO DECREASED GLUCOSE; Start 04/15/19 at 0 8:30 Dextrose (D50w Syringe) 25 ml Q15M PRN IV DECREASED GLUCOSE; Start 04/15/19 at 08:30 Dextrose (D50w Syringe) 50 ml Q15M PRN IV DECREASED GLUCOSE; Start 04/15/19 at 08:30 Glucagon (Glucagen) 1 mg Q15M PRN IM DECREASED GLUCOSE; Start 04/15/19 at 08:30 Glucose (Glutose) 15 gm Q15M PRN BUCCAL DECREASED GLUCOSE; Start 04/15/19 at 08:30 Ceftriaxone Sodium 50 ml @ 100 mls/hr Q24H IVPB Last administered on 04/15/19at 21:27; Admin Dose 100 MLS/HR; Start 04/15/19 at 12:30 Propranolol HCl (Inderal) 20 mg BID PO Last administered on 04/16/19at 08:37; Admin Dose 20 MG; Start 04/15/19 at 14:00 Albumin Human 100 ml @ 100 mls/hr Q8H IV Last administered on 04/16/19at 08:36; Admin Dose 100 MLS/HR; Start 04/15/19 at 17:30; Stop 04/17/19 at 10:29 TIA HENDRIX MD Apr 16, 2019 09:31
[2019-04-16 11:12] VITALS: BP 161/79; PULSE 63; RESP 18
[2019-04-16] MEDS: OCTREOTIDE 500 MCG in DEXTROSE 5% 49 ML IV SCH (11:28)
--- NOTE | 2019-04-16 12:04 | PN ---
Date/Time of Note Date/Time of Note DATE: 04/16/19 TIME: 12:03 Assessment/Plan VTE Prophylaxis Risk score (from Ns)>0 risk: 3 SCD applied (from Ns): Yes Pharmacological prophylaxis: LMWH Lines/Catheters IV Catheter Type (from [facility]): [place] [facility] Assessment/Plan Hospital Course - Upper gastrointestinal bleeding - for EGD today - Hepatoma. - Diabetes mellitus. - Hypertension. - Renal insufficiency - nephro consult - CKD-3 - Elevated AFP- 2300 - will get Oncology Result Diagram: 04/16/19 0554 04/16/19 0554 Results 24hrs Laboratory Tests Test 04/15/19 17:39 04/15/19 23:10 04/16/19 05:54 04/16/19 06:04 Bedside Glucose 156 145 138 White Blood Count 8.8 Red Blood Count 3.17 #L Hemoglobin 9.5 L Hematocrit 26.9 L Mean Corpuscular 84.9 Volume Mean Corpuscular 30.0 Hemoglobin Mean Corpuscular 35.3 Hemoglobin Concent Red Cell 16.9 H Distribution Width Platelet Count 29 *L Mean Platelet Volume 10.7 H Immature 1.000 H Granulocytes % Neutrophils % 78.6 H Lymphocytes % 9.8 L Monocytes % 10.4 Eosinophils % 0.1 Basophils % 0.1 Nucleated Red Blood 0.0 Cells % Immature 0.090 H Granulocytes # Neutrophils # 6.9 Lymphocytes # 0.9 Monocytes # 0.9 Eosinophils # 0.0 Basophils # 0.0 Nucleated Red Blood 0.0 Cells # Sodium Level 135 Potassium Level 3.8 Chloride Level 108 Carbon Dioxide Level 18 L Anion Gap 9 Blood Urea Nitrogen 36 H Creatinine 2.48 H Est Glomerular 27 L Filtrat Rate mL/min Glucose Level 145 Calcium Level 8.2 L Subjective 24 Hr Interval Summary Free Text/Dictation Patient complain of pain in chest and upper stomach Exam/Review of Systems Exam Vitals Vital Signs Date Temp Pulse Resp B/P (MAP) Pulse Ox O2 O2 Flow FiO2 Time Delivery Rate 04/16/19 98.5 63 18 161/79 98 Room Air 11:12 (106) 04/15/19 2.0 14:39 Intake and Output 04/15/19 04/15/19 04/16/19 1515:00 23:00 07:00 IntakeIntake Total 300 ml 318 ml 100 ml BalanceBalance 300 ml 318 ml 100 ml Constitutional: well developed Head: normocephalic, atraumatic Neck: supple Respiratory: clear to auscultation Cardiovascular: regular rate and rhythm Gastrointestinal: soft, tender Extremities: normal pulses Results Results 24hrs Laboratory Tests Test 04/15/19 17:39 04/15/19 23:10 04/16/19 05:54 04/16/19 06:04 Bedside Glucose 156 145 138 White Blood Count 8.8 Red Blood Count 3.17 #L Hemoglobin 9.5 L Hematocrit 26.9 L Mean Corpuscular 84.9 Volume Mean Corpuscular 30.0 Hemoglobin Mean Corpuscular 35.3 Hemoglobin Concent Red Cell 16.9 H Distribution Width Platelet Count 29 *L Mean Platelet Volume 10.7 H Immature 1.000 H Granulocytes % Neutrophils % 78.6 H Lymphocytes % 9.8 L Monocytes % 10.4 Eosinophils % 0.1 Basophils % 0.1 Nucleated Red Blood 0.0 Cells % Immature 0.090 H Granulocytes # Neutrophils # 6.9 Lymphocytes # 0.9 Monocytes # 0.9 Eosinophils # 0.0 Basophils # 0.0 Nucleated Red Blood 0.0 Cells # Sodium Level 135 Potassium Level 3.8 Chloride Level 108 Carbon Dioxide Level 18 L Anion Gap 9 Blood Urea Nitrogen 36 H Creatinine 2.48 H Est Glomerular 27 L Filtrat Rate mL/min Glucose Level 145 Calcium Level 8.2 L Medications Medication Current Medications Octreotide Acetate 500 mcg/ Dextrose 50 ml @ 2.5 mls/hr Q20H IV Last administered on 04/16/19at 11:28; Admin Dose 2.5 MLS/HR; Start 04/14/19 at 19:30 Pantoprazole (Protonix Iv) 40 mg BID@06,18 IV Last administered on 04/16/19at 06:05; Admin Dose 40 MG; Start 04/15/19 at 06:00 Dextrose/Sodium Chloride 1,000 ml @ 60 mls/hr [id number] IV Last administered on 04/15/19at 08:43; Admin Dose 75 MLS/HR; Start 04/14/19 at 19:30 Ondansetron HCl (Zofran Inj) 4 mg Q4H PRN IV NAUSEA AND/OR VOMITING Last administered on 04/15/19at 05:16; Admin Dose 4 MG; Start 04/14/19 at 19:30 Hydralazine HCl (Apresoline) 10 mg Q4H PRN IV HIGH BP Last administered on 04/15/19at 19:44; Admin Dose 10 MG; Start 04/14/19 at 19:30 Clonidine HCl (Catapres-Tts 2 Patch) 1 patch Q7D TRANSDERM Last administered on 04/14/19at 19:55; Admin Dose 1 PATCH; Start 04/14/19 at 19:30 Diagnostic Test (Pha) (Accu-Chek) 1 ea 02 XX ; Start 04/15/19 at 02:00 Insulin Aspart (Novolog Insulin Pen) NOVOLOG *MILD* ALGORITHM Q6 SC ; Start 04/15/19 at 00:00 Phytonadione 10 mg/Dextrose 51 ml @ 102 mls/hr DAILY IVPB Last administered on 04/16/19at 08:36; Admin Dose 102 MLS/HR; Start 04/15/19 at 09:00; Stop 04/18/19 at 09:00 Miscellaneous Information 1 ea NOTE XX ; Start 04/15/19 at 08:30 Glucose (Glutose) 15 gm Q15M PRN PO DECREASED GLUCOSE; Start 04/15/19 at 08:30 Glucose (Glutose) 22.5 gm Q15M PRN PO DECREASED GLUCOSE; Start 04/15/19 at 08:30 Dextrose (D50w Syringe) 25 ml Q15M PRN IV DECREASED GLUCOSE; Start 04/15/19 at 08:30 Dextrose (D50w Syringe) 50 ml Q15M PRN IV DECREASED GLUCOSE; Start 04/15/19 at 08:30 Glucagon (Glucagen) 1 mg Q15M PRN IM DECREASED GLUCOSE; Start 04/15/19 at 08:30 Glucose (Glutose) 15 gm Q15M PRN BUCCAL DECREASED GLUCOSE; Start 04/15/19 at 08:30 Ceftriaxone Sodium 50 ml @ 100 mls/hr Q24H IVPB Last administered on 04/15/19at 21:27; Admin Dose 100 MLS/HR; Start 04/15/19 at 12:30 Propranolol HCl (Inderal) 20 mg BID PO Last administered on 04/16/19at 08:37; Admin Dose 20 MG; Start 04/15/19 at 14:00 Albumin Human 100 ml @ 100 mls/hr Q8H IV Last administered on 04/16/19at 08:36; Admin Dose 100 MLS/HR; Start 04/15/19 at 17:30; Stop 04/17/19 at 10:29 TAWANDA SMITH Apr 16, 2019 12:04
[2019-04-16] MEDS: CEFTRIAXONE 1 GM/50 ML (PMX) 50 ML IVPB SCH (13:51)
[2019-04-16 15:40] VITALS: BP 149/72; PULSE 68; RESP 18
[2019-04-16] MEDS: DEXTROSE 5%-0.45% NACL 1,000 ML IV SCH (16:04)
--- NOTE | 2019-04-16 16:47 | CONS ---
Assessment/Plan Assessment/Plan Assessment/Plan (Daily) # Liver mass- 04/01/2019- CT- showed a poorly defined hypodense mass within the right lobe measuring 6.5 x 6.1 cm concerning for neoplasm. - Patient is under care of Dr Sulaiman Gomez- Oncologist; at [place]. Patient is unable to provide contact information about his oncologist. Patient is taking Lenvima 8 mg Po daily. I dw Dr Shepard- we will hold Lenvima till patient has no GI bleed. All these dw patient; he agreed. # Elevated AFP- 2300 - ? liver bx -will dw Dr Shepard # Hepatoma # Upper gastrointestinal bleeding - SP EGD- showed varices. pt is s/p banding # Anemia ; Hgb 9.5 today # Diabetes mellitus. -continue management per primary team # Hypertension. -continue management per primary team # Renal insufficiency Cr 2.48 today - -management per nephrology # CKD-3 # Former smoker - reinforce smoking cessation Thank you for the opportunity to participate in this patients care. Total of 50 minutes spent in dw patient, counseling and coordination of care and the detailed question and answer session, staff rearding his plan of care Patient seen on collaboration with Dr Shepard. Dw staff Consultation Date/Type/Reason Admit Date/Time Apr 14, 2019 at 17:07 Date of Consultation: Apr 15, 2019 Type of Consult HEM/ONC Reason for Consultation LIVER MASS Requesting Provider: DOMINIK CHÁVEZ Date/Time of Note DATE: 04/16/19 TIME: 16:24 Hx of Present Illness Hx of Present Illness This is a 63 yrs old Male patient with PMHx of HTN, DM II, HL, CKD III due to DM nephropathy, liver mass was admitted for Upper GI bleeding- GI was consulted. 04/01/2019- CT- showed a poorly defined hypodense mass within the right lobe measuring 6.5 x 6.1 cm concerning for neoplasm. 04/15/2019- SP EGD During assessment patient seems comfortable. Tolerating diet. He denies shortness of breath; chest pain; . Denies headache, fever, focal weakness/numbness; abdominal pain, nausea/vomitting/bloody stool; denies bilateral calves pain; dysuria. Oncology/Hematology consulted for Liver mass. No reported alcohol abuse. Patient is under care of Dr Sulaiman Gomez- Oncologist; at [place]. Patient is unable to provide contact information about his oncologist. Patient is taking Lenvima 8 mg Po daily. I nate dubon will hold Lenvima untill patient has no GI bleed. All these dw patient; he agreed. Plan of care dw patient and staff . Constitutional: requiring IVF Eyes: no complaints ENT: no complaints Respiratory: no complaints Cardiovascular: no complaints Gastrointestinal: pain, other (RUQ pain and diffuse pain) Musculoskeletal: no complaints Skin: no complaints Neurologic: no complaints Past Medical History Past Medical History Medical History: high cholesterol, hypertension, renal disease, other (Liver cirrhosis ) Medical History: high cholesterol, hypertension, renal disease, other (Liver cirrhosis ) Home Meds Active Scripts Polyethylene Glycol* (Miralax*) 17 Gm Powd.pack, 17 GM PO DAILY, #7 Prov:TIA LOPEZ MD 04/01/19 Hydroxyzine Hcl* (Atarax*) 25 Mg Tab, 25 MG PO Q6H PRN for ITCHING for 14 Days, TAB Prov:TIA LOPEZ MD 04/01/19 [Vancomycin Iv Per Pharmacy] 1 EA EACH No Conflict Check, 0 EA XX .PER PROTOCOL for 42 Days Prov:CARLIE CARDONA NP 02/12/18 Hydrocodone/Acetaminophen ([place] 5-325 Tablet) 1 Each Tablet, 1 EACH PO Q4, #30 TAB Prov:CARLIE CARDONA NP 02/12/18 Levofloxacin* (Levofloxacin*) 500 Mg Tablet, 500 MG PO DAILY, #42 TAB Prov:CARLIE CARDONA NP 02/12/18 Reported Medications Linagliptin (TRADJENTA) 5 Mg Tablet, 1, #30 02/04/18 Amlodipine Besylate* (Amlodipine Besylate*) 5 Mg Tablet, 1 TAB, #30 02/04/18 Benazepril Hcl* (Benazepril Hcl*) 40 Mg Tablet, 1 TAB, #30 02/04/18 Medications Current Medications Octreotide Acetate 500 mcg/ Dextrose 50 ml @ 2.5 mls/hr Q20H IV Last administered on 04/16/19at 11:28; Admin Dose 2.5 MLS/HR; Start 04/14/19 at 19:30 Pantoprazole (Protonix Iv) 40 mg BID@06,18 IV Last administered on 04/16/19at 06:05; Admin Dose 40 MG; Start 04/15/19 at 06:00 Dextrose/Sodium Chloride 1,000 ml @ 60 mls/hr [id number] IV Last administered on 04/15/19at 08:43; Admin Dose 75 MLS/HR; Start 04/14/19 at 19:30 Ondansetron HCl (Zofran Inj) 4 mg Q4H PRN IV NAUSEA AND/OR VOMITING Last administered on 04/15/19at 05:16; Admin Dose 4 MG; Start 04/14/19 at 19:30 Hydralazine HCl (Apresoline) 10 mg Q4H PRN IV HIGH BP Last administered on 04/15/19at 19:44; Admin Dose 10 MG; Start 04/14/19 at 19:30 Clonidine HCl (Catapres-Tts 2 Patch) 1 patch Q7D TRANSDERM Last administered on 04/14/19at 19:55; Admin Dose 1 PATCH; Start 04/14/19 at 19:30 Diagnostic Test (Pha) (Accu-Chek) 1 ea 02 XX ; Start 04/15/19 at 02:00 Insulin Aspart (Novolog Insulin Pen) NOVOLOG *MILD* ALGORITHM Q6 SC ; Start 04/15/19 at 00:00 Phytonadione 10 mg/Dextrose 51 ml @ 102 mls/hr DAILY IVPB Last administered on 04/16/19at 08:36; Admin Dose 102 MLS/HR; Start 04/15/19 at 09:00; Stop 04/18/19 at 09:00 Miscellaneous Information 1 ea NOTE XX ; Start 04/15/19 at 08:30 Glucose (Glutose) 15 gm Q15M PRN PO DECREASED GLUCOSE; Start 04/15/19 at 08:30 Glucose (Glutose) 22.5 gm Q15M PRN PO DECREASED GLUCOSE; Start 04/15/19 at 08:30 Dextrose (D50w Syringe) 25 ml Q15M PRN IV DECREASED GLUCOSE; Start 04/15/19 at 08:30 Dextrose (D50w Syringe) 50 ml Q15M PRN IV DECREASED GLUCOSE; Start 04/15/19 at 08:30 Glucagon (Glucagen) 1 mg Q15M PRN IM DECREASED GLUCOSE; Start 04/15/19 at 08:30 Glucose (Glutose) 15 gm Q15M PRN BUCCAL DECREASED GLUCOSE; Start 04/15/19 at 08:30 Ceftriaxone Sodium 50 ml @ 100 mls/hr Q24H IVPB Last administered on 04/16/19at 13:51; Admin Dose 100 MLS/HR; Start 04/15/19 at 12:30 Propranolol HCl (Inderal) 20 mg BID PO Last administered on 04/16/19at 08:37; Admin Dose 20 MG; Start 04/15/19 at 14:00 Albumin Human 100 ml @ 100 mls/hr Q8H IV Last administered on 04/16/19at 08:36; Admin Dose 100 MLS/HR; Start 04/15/19 at 17:30; Stop 04/17/19 at 10:29 Allergies: Coded Allergies: No Known Allergies (Verified Allergy, Unknown, 02/04/18) Past Surgical History Past Surgical History Past Surgical Hx: other (Left foot abscess I & D, Cataract surgery) Family History Significant Family History: no pertinent family hx Social History Alcohol Use: none Smoking Status: Former smoker Drug Use: none Past Surgical Hx: other (Left foot abscess I & D, Cataract surgery) Family History Significant Family History: no pertinent family hx Social History Alcohol Use: none Smoking Status: Former smoker Drug Use: none Exam/Review of Systems Exam Vitals Vital Signs Date Temp Pulse Resp B/P (MAP) Pulse Ox O2 O2 Flow FiO2 Time Delivery Rate 04/16/19 99.5 68 18 149/72 99 Room Air 15:40 (97) 04/15/19 2.0 14:39 Intake and Output 04/15/19 04/15/19 04/16/19 1515:00 23:00 07:00 IntakeIntake Total 300 ml 318 ml 100 ml BalanceBalance 300 ml 318 ml 100 ml Constitutional: alert, well developed Psych: nl mood/affect Head: atraumatic Eyes: nl lids, nl sclera, PERRL ENMT: nl external ears & nose Neck: non-tender Respiratory: clear to auscultation Cardiovascular: nl pulses, other (s1s2) Gastrointestinal: soft, tender (RUQ tenderness and diffuse tenderness) Musculoskeletal: nl extremities to inspection Extremities: normal pulses Neurological: nl mental status, nl speech Skin: nl turgor Results Result Diagram: 04/16/19 0554 04/16/19 0554 Results 24hrs Laboratory Tests Test 04/15/19 17:39 04/15/19 23:10 04/16/19 05:54 04/16/19 06:04 Bedside Glucose 156 145 138 White Blood Count 8.8 Red Blood Count 3.17 #L Hemoglobin 9.5 L Hematocrit 26.9 L Mean Corpuscular 84.9 Volume Mean Corpuscular 30.0 Hemoglobin Mean Corpuscular 35.3 Hemoglobin Concent Red Cell 16.9 H Distribution Width Platelet Count 29 *L Mean Platelet Volume 10.7 H Immature 1.000 H Granulocytes % Neutrophils % 78.6 H Lymphocytes % 9.8 L Monocytes % 10.4 Eosinophils % 0.1 Basophils % 0.1 Nucleated Red Blood 0.0 Cells % Immature 0.090 H Granulocytes # Neutrophils # 6.9 Lymphocytes # 0.9 Monocytes # 0.9 Eosinophils # 0.0 Basophils # 0.0 Nucleated Red Blood 0.0 Cells # Sodium Level 135 Potassium Level 3.8 Chloride Level 108 Carbon Dioxide Level 18 L Anion Gap 9 Blood Urea Nitrogen 36 H Creatinine 2.48 H Est Glomerular 27 L Filtrat Rate mL/min Glucose Level 145 Calcium Level 8.2 L Test 04/16/19 12:12 Bedside Glucose 154 Medications Medication Current Medications Octreotide Acetate 500 mcg/ Dextrose 50 ml @ 2.5 mls/hr Q20H IV Last administered on 04/16/19at 11:28; Admin Dose 2.5 MLS/HR; Start 04/14/19 at 19:30 Pantoprazole (Protonix Iv) 40 mg BID@06,18 IV Last administered on 04/16/19at 06:05; Admin Dose 40 MG; Start 04/15/19 at 06:00 Dextrose/Sodium Chloride 1,000 ml @ 60 mls/hr [id number] IV Last administered on 04/15/19at 08:43; Admin Dose 75 MLS/HR; Start 04/14/19 at 19:30 Ondansetron HCl (Zofran Inj) 4 mg Q4H PRN IV NAUSEA AND/OR VOMITING Last administered on 04/15/19at 05:16; Admin Dose 4 MG; Start 04/14/19 at 19:30 Hydralazine HCl (Apresoline) 10 mg Q4H PRN IV HIGH BP Last administered on 04/15/19at 19:44; Admin Dose 10 MG; Start 04/14/19 at 19:30 Clonidine HCl (Catapres-Tts 2 Patch) 1 patch Q7D TRANSDERM Last administered on 04/14/19at 19:55; Admin Dose 1 PATCH; Start 04/14/19 at 19:30 Diagnostic Test (Pha) (Accu-Chek) 1 ea 02 XX ; Start 04/15/19 at 02:00 Insulin Aspart (Novolog Insulin Pen) NOVOLOG *MILD* ALGORITHM Q6 SC ; Start 04/15/19 at 00:00 Phytonadione 10 mg/Dextrose 51 ml @ 102 mls/hr DAILY IVPB Last administered on 04/16/19at 08:36; Admin Dose 102 MLS/HR; Start 04/15/19 at 09:00; Stop 04/18/19 at 09:00 Miscellaneous Information 1 ea NOTE XX ; Start 04/15/19 at 08:30 Glucose (Glutose) 15 gm Q15M PRN PO DECREASED GLUCOSE; Start 04/15/19 at 08:30 Glucose (Glutose) 22.5 gm Q15M PRN PO DECREASED GLUCOSE; Start 04/15/19 at 08:30 Dextrose (D50w Syringe) 25 ml Q15M PRN IV DECREASED GLUCOSE; Start 04/15/19 at 08:30 Dextrose (D50w Syringe) 50 ml Q15M PRN IV DECREASED GLUCOSE; Start 04/15/19 at 08:30 Glucagon (Glucagen) 1 mg Q15M PRN IM DECREASED GLUCOSE; Start 04/15/19 at 08:30 Glucose (Glutose) 15 gm Q15M PRN BUCCAL DECREASED GLUCOSE; Start 04/15/19 at 08:30 Ceftriaxone Sodium 50 ml @ 100 mls/hr Q24H IVPB Last administered on 04/16/19at 13:51; Admin Dose 100 MLS/HR; Start 04/15/19 at 12:30 Propranolol HCl (Inderal) 20 mg BID PO Last administered on 04/16/19at 08:37; Ad min Dose 20 MG; Start 04/15/19 at 14:00 Albumin Human 100 ml @ 100 mls/hr Q8H IV Last administered on 04/16/19at 08:36; Admin Dose 100 MLS/HR; Start 04/15/19 at 17:30; Stop 04/17/19 at 10:29 DOMINIK CHÁVEZ Apr 16, 2019 16:36
[2019-04-16 20:00] VITALS: BP 152/71; PULSE 63; PULSE 67; RESP 18
[2019-04-17] VITALS: BP 161/73; PULSE 60; PULSE 64; RESP 18
[2019-04-17] MEDS: ACCU-CHEK XX SCH (02:00)
[2019-04-17] MEDS: ALBUMIN HUMAN 25% 100 ML IV SCH ×2 (02:07→08:26)
[2019-04-17 04:00] VITALS: BP 207/78; PULSE 64; PULSE 65; RESP 18
[2019-04-17] MEDS: hydrALAzine 20 MG INJ IV PRN ×3 (04:43→20:37)
[2019-04-17] MEDS: INSULIN ASPART [NOVOLOG] 3 ML PEN SC SCH ×3 (04:44→17:53)
[2019-04-17] MEDS: OCTREOTIDE 500 MCG in DEXTROSE 5% 49 ML IV SCH (04:44)
[2019-04-17] MEDS: PANTOPRAZOLE 40 MG INJ IV SCH ×2 (04:44→17:30)
[2019-04-17] MEDS: DEXTROSE 5%-0.45% NACL 1,000 ML IV SCH (06:40)
[2019-04-17 07:34] VITALS: BP 160/66; PULSE 65; RESP 20
[2019-04-17] MEDS: PHYTONADIONE 10 MG in DEXTROSE 5% 50 ML IVPB SCH (08:24)
[2019-04-17] MEDS: PROPRANOLOL 20 MG TAB PO SCH ×2 (08:25→20:33)
--- NOTE | 2019-04-17 09:22 | CONS ---
Assessment/Plan Assessment/Plan Assessment/Plan (Daily) Assessment 1. acute kidney injury on CKD III due to Prerenal azotemia from GI bleeding + decompensated liver cirrhosis 2. Acute decompensated liver cirrhosis 3. Upper GI bleeding 3. H/o Hepatoma with acute transaminitis 4. EGD 04/15/19: esophageal varices s/p banding with hemostasis 5. Liver mass- 04/01/2019- CT- showed a poorly defined hypodense mass within the right lobe measuring 6.5 x 6.1 cm concerning for neoplasm. 6. Elevated AFP- 2300 Plan: continue Protonix 40mg IV BID agree wtih Iv albumin 25% 100ml Q 8 hr x 6 doses Continue propranolol 20mg TID continue renal diet recommend primary hospitalist to consult oncology nurse for likely h epatocellular carcinoma w/u and management. Most likely patient will need IR guided liver bx of the mass. Dr. Malone to resume care of this patient tomorrow Consultation Date/Type/Reason Admit Date/Time Apr 14, 2019 at 17:07 Initial Consult Date 04/15/19 Type of Consult GI Requesting Provider: TRAM ROGERS MD Date/Time of Note DATE: 04/17/19 TIME: 09:19 24 HR Interval Summary Free Text/Dictation sleeping peacefully Exam/Review of Systems Exam Vitals Vital Signs Date Temp Pulse Resp B/P (MAP) Pulse Ox O2 O2 Flow FiO2 Time Delivery Rate 04/17/19 98.6 65 20 160/66 96 Room Air 07:34 (97) 04/15/19 2.0 14:39 Intake and Output 04/16/19 04/16/19 04/17/19 1515:00 23:00 07:00 IntakeIntake Total 480 ml 1360 ml 500 ml BalanceBalance 480 ml 1360 ml 500 ml Constitutional: well developed Head: normocephalic, atraumatic Eyes: nl conjunctiva, nl lids ENMT: nl external ears & nose, nl lips & teeth, nl nasal mucosa & septum Neck: supple, non-tender Respiratory: clear to auscultation, normal air movement Cardiovascular: regular rate and rhythm Gastrointestinal: soft, non-tender Results Result Diagram: 04/17/19 0617 04/17/19 0617 Results 24hrs Laboratory Tests Test 04/16/19 12:12 04/16/19 17:06 04/16/19 21:10 04/17/19 04:43 Bedside Glucose 154 104 142 140 Test 04/17/19 06:17 White Blood Count 7.6 Red Blood Count 3.06 L Hemoglobin 9.0 L Hematocrit 25.7 L Mean Corpuscular 84.0 Volume Mean Corpuscular 29.4 Hemoglobin Mean Corpuscular 35.0 Hemoglobin Concent Red Cell 16.6 H Distribution Width Platelet Count 31 L Mean Platelet Volume 12.0 H Immature 0.400 Granulocytes % Neutrophils % 77.2 H Lymphocytes % 11.4 L Monocytes % 10.2 Eosinophils % 0.7 Basophils % 0.1 Nucleated Red Blood 0.0 Cells % Immature 0.030 Granulocytes # Neutrophils # 5.9 Lymphocytes # 0.9 Monocytes # 0.8 Eosinophils # 0.1 Basophils # 0.0 Nucleated Red Blood 0.0 Cells # Sodium Level 132 L Potassium Level 3.7 Chloride Level 105 Carbon Dioxide Level 18 L Anion Gap 9 Blood Urea Nitrogen 34 H Creatinine 2.10 H Est Glomerular 32 L Filtrat Rate mL/min Glucose Level 146 Calcium Level 7.9 L Prostate Specific 0.5 Antigen Medications Medication Current Medications Octreotide Acetate 500 mcg/ Dextrose 50 ml @ 2.5 mls/hr Q20H IV Last administered on 04/17/19 04:44; Admin Dose 2.5 MLS/HR; Start 04/14/19 at 19:30 Pantoprazole (Protonix Iv) 40 mg BID@06,18 IV Last administered on 04/17/19 04:44; Admin Dose 40 MG; Start 04/15/19 at 06:00 Dextrose/Sodium Chloride 1,000 ml @ 60 mls/hr [id number] IV Last administered on 04/17/19 06:40; Admin Dose 60 MLS/HR; Start 04/14/19 at 19:30 Ondansetron HCl (Zofran Inj) 4 mg Q4H PRN IV NAUSEA AND/OR VOMITING Last administered on 04/15/19 05:16; Admin Dose 4 MG; Start 04/14/19 at 19:30 Hydralazine HCl (Apresoline) 10 mg Q4H PRN IV HIGH BP Last administered on 04/17/19 04:43; Admin Dose 10 MG; Start 04/14/19 at 19:30 Clonidine HCl (Catapres-Tts 2 Patch) 1 patch Q7D TRANSDERM Last administered on 04/14/19at 19:55; Admin Dose 1 PATCH; Start 04/14/19 at 19:30 Diagnostic Test (Pha) (Accu-Chek) 1 ea 02 XX ; Start 04/15/19 at 02:00 Insulin Aspart (Novolog Insulin Pen) NOVOLOG *MILD* ALGORITHM Q6 SC ; Start 04/15/19 at 00:00 Phytonadione 10 mg/Dextrose 51 ml @ 102 mls/hr DAILY IVPB Last administered on 04/17/19at 08:24; Admin Dose 102 MLS/HR; Start 04/15/19 at 09:00; Stop 04/18/19 at 09:00 Miscellaneous Information 1 ea NOTE XX ; Start 04/15/19 at 08:30 Glucose (Glutose) 15 gm Q15M PRN PO DECREASED GLUCOSE; Start 04/15/19 at 08:30 Glucose (Glutose) 22.5 gm Q15M PRN PO DECREASED GLUCOSE; Start 04/15/19 at 08:30 Dextrose (D50w Syringe) 25 ml Q15M PRN IV DECREASED GLUCOSE; Start 04/15/19 at 08:30 Dextrose (D50w Syringe) 50 ml Q15M PRN IV DECREASED GLUCOSE; Start 04/15/19 at 08:30 Glucagon (Glucagen) 1 mg Q15M PRN IM DECREASED GLUCOSE; Start 04/15/19 at 08:30 Glucose (Glutose) 15 gm Q15M PRN BUCCAL DECREASED GLUCOSE; Start 04/15/19 at 08:30 Ceftriaxone Sodium 50 ml @ 100 mls/hr Q24H IVPB Last administered on 04/16/19at 13:51; Admin Dose 100 MLS/HR; Start 04/15/19 at 12:30 Propranolol HCl (Inderal) 20 mg BID PO Last administered on 04/17/19 08:25; Admin Dose 20 MG; Start 04/15/19 at 14:00 Albumin Human 100 ml @ 100 mls/hr Q8H IV Last administered on 04/17/19 08:26; Admin Dose 100 MLS/HR; Start 04/15/19 at 17:30; Stop 04/17/19 at 10:29 TIA HENDRIX MD Apr 17, 2019 09:22
[2019-04-17 11:18] VITALS: BP 182/82; PULSE 61; RESP 20
--- NOTE | 2019-04-17 11:38 | CONS ---
Assessment/Plan Assessment/Plan Assessment/Plan (Daily) # Liver mass- 04/01/2019- CT- showed a poorly defined hypodense mass within the right lobe measuring 6.5 x 6.1 cm concerning for neoplasm. - Patient is under care of Dr Sulaiman Gomez- Oncologist; at [place]. Patient is unable to provide contact information about his oncologist. Patient is taking Lenvima 8 mg Po daily. I dw Dr Shepard- we will hold Lenvima till patient has no GI bleed. All these dw patient; he agreed. # Elevated AFP- 2300 - ? liver bx - dw Dr Shepard # Hepatoma # Upper gastrointestinal bleeding - SP EGD- showed varices. pt is s/p banding # Anemia; Hgb 9.0 today # Diabetes mellitus. -continue management per primary team # Hypertension. -continue management per primary team # Renal insufficiency; Cr 2.10 - -management per nephrology # CKD-3 # Former smoker - reinforce smoking cessation Thank you for the opportunity to participate in this patients care. Dw staff Consultation Date/Type/Reason Admit Date/Time Apr 14, 2019 at 17:07 Initial Consult Date 04/15/19 Requesting Provider: TRAM ROGERS MD Date/Time of Note DATE: 04/17/19 TIME: 11:34 24 HR Interval Summary Free Text/Dictation sitting up in bed; having lunch; tolerates diet C/O abdominal pain on and off worries about not taking his med- DW patient again that he will start med when he will not have any GI bleed no new events last night Detailed Summary ENT: no complaints Respiratory: no complaints Cardiovascular: no complaints Gastrointestinal: pain Genitourinary: no complaints Musculoskeletal: no complaints Skin: no complaints Neurologic: no complaints Endocrine: no complaints Psychological: nl mood/affect Immunologic: no complaints Exam/Review of Systems Exam Vitals Vital Signs Date Temp Pulse Resp B/P (MAP) Pulse Ox O2 O2 Flow FiO2 Time Delivery Rate 04/17/19 97.8 61 20 182/82 95 Room Air 11:18 (115) 04/15/19 2.0 14:39 Intake and Output 04/16/19 04/16/19 04/17/19 1515:00 23:00 07:00 IntakeIntake Total 480 ml 1360 ml 500 ml BalanceBalance 480 ml 1360 ml 500 ml Constitutional: alert, oriented Psych: nl mood/affect Head: atraumatic Eyes: nl lids, nl sclera, PERRL ENMT: nl external ears & nose Neck: non-tender Respiratory: clear to auscultation Cardiovascular: nl pulses, other (s1s2) Gastrointestinal: soft, tender (diffuse) Musculoskeletal: nl extremities to inspection Extremities: normal pulses Neurological: nl speech, other (alert/reponsive) Skin: other (no rash noted) Results Result Diagram: 04/17/1961604/17/19616 Results 24hrs Laboratory Tests Test 04/16/19 12:12 04/16/19 17:06 04/16/19 21:10 04/17/19 04:43 Bedside Glucose 154 104 142 140 Test 04/17/19 06:17 04/17/19 11:31 White Blood Count 7.6 Red Blood Count 3.06 L Hemoglobin 9.0 L Hematocrit 25.7 L Mean Corpuscular 84.0 Volume Mean Corpuscular 29.4 Hemoglobin Mean Corpuscular 35.0 Hemoglobin Concent Red Cell 16.6 H Distribution Width Platelet Count 31 L Mean Platelet Volume 12.0 H Immature 0.400 Granulocytes % Neutrophils % 77.2 H Lymphocytes % 11.4 L Monocytes % 10.2 Eosinophils % 0.7 Basophils % 0.1 Nucleated Red Blood 0.0 Cells % Immature 0.030 Granulocytes # Neutrophils # 5.9 Lymphocytes # 0.9 Monocytes # 0.8 Eosinophils # 0.1 Basophils # 0.0 Nucleated Red Blood 0.0 Cells # Sodium Level 132 L Potassium Level 3.7 Chloride Level 105 Carbon Dioxide Level 18 L Anion Gap 9 Blood Urea Nitrogen 34 H Creatinine 2.10 H Est Glomerular 32 L Filtrat Rate mL/min Glucose Level 146 Calcium Level 7.9 L Prostate Specific 0.5 Antigen Bedside Glucose 148 Medications Medication Current Medications Octreotide Acetate 500 mcg/ Dextrose 50 ml @ 2.5 mls/hr Q20H IV Last administered on 04/17/19at 04:44; Admin Dose 2.5 MLS/HR; Start 04/14/19 at 19:30 Pantoprazole (Protonix Iv) 40 mg BID@06,18 IV Last administered on 04/17/19at 04:44; Admin Dose 40 MG; Start 04/15/19 at 06:00 Dextrose/Sodium Chloride 1,000 ml @ 60 mls/hr [id number] IV Last administered on 04/17/19at 06:40; Admin Dose 60 MLS/HR; Start 04/14/19 at 19:30 Ondansetron HCl (Zofran Inj) 4 mg Q4H PRN IV NAUSEA AND/OR VOMITING Last administered on 04/15/19at 05:16; Admin Dose 4 MG; Start 04/14/19 at 19:30 Hydralazine HCl (Apresoline) 10 mg Q4H PRN IV HIGH BP Last administered on 04/17/19at 04:43; Admin Dose 10 MG; Start 04/14/19 at 19:30 Clonidine HCl (Catapres-Tts 2 Patch) 1 patch Q7D TRANSDERM Last administered on 04/14/19at 19:55; Admin Dose 1 PATCH; Start 04/14/19 at 19:30 Diagnostic Test (Pha) (Accu-Chek) 1 ea 02 XX ; Start 04/15/19 at 02:00 Insulin Aspart (Novolog Insulin Pen) NOVOLOG *MILD* ALGORITHM Q6 SC ; Start 04/15/19 at 00:00 Phytonadione 10 mg/Dextrose 51 ml @ 102 mls/hr DAILY IVPB Last administered on 04/17/19at 08:24; Admin Dose 102 MLS/HR; Start 04/15/19 at 09:00; Stop 04/18/19 at 09:00 Miscellaneous Information 1 ea NOTE XX ; Start 04/15/19 at 08:30 Glucose (Glutose) 15 gm Q15M PRN PO DECREASED GLUCOSE; Start 04/15/19 at 08:30 Glucose (Glutose) 22.5 gm Q15M PRN PO DECREASED GLUCOSE; Start 04/15/19 at 08:30 Dextrose (D50w Syringe) 25 ml Q15M PRN IV DECREASED GLUCOSE; Start 04/15/19 at 08:30 Dextrose (D50w Syringe) 50 ml Q15M PRN IV DECREASED GLUCOSE; Start 04/15/19 at 08:30 Glucagon (Glucagen) 1 mg Q15M PRN IM DECREASED GLUCOSE; Start 04/15/19 at 08:30 Glucose (Glutose) 15 gm Q15M PRN BUCCAL DECREASED GLUCOSE; Start 04/15/19 at 08:30 Ceftriaxone Sodium 50 ml @ 100 mls/hr Q24H IVPB Last administered on 04/16/19at 13:51; Admin Dose 100 MLS/HR; Start 04/15/19 at 12:30 Propranolol HCl (Inderal) 20 mg BID PO Last administered on 04/17/19at 08:25; Admin Dose 20 MG; Start 04/15/19 at 14:00 DOMINIK CHÁVEZ Apr 17, 2019 11:38
--- NOTE | 2019-04-17 11:53 | PN ---
Date/Time of Note Date/Time of Note DATE: 04/17/19 TIME: 11:52 Assessment/Plan VTE Prophylaxis [place] [facility] [place]: 3 SCD applied [place] [facility] [place] Yes Pharmacological prophylaxis: NA/contraindicated Pharm contraindication: bleeding Lines/Catheters IV [facility] Type (from [facility]): Peripheral IV Assessment/Plan Hospital Course - Upper gastrointestinal bleeding - for EGD today - Hepatoma. - Diabetes mellitus. - Hypertension. - Renal insufficiency - nephro consult - CKD-3 - Elevated AFP- 2300 - will get Oncology Result Diagram: 04/17/19 0617 04/17/19 0617 Results 24hrs Laboratory Tests Test 04/16/19 12:12 04/16/19 17:06 04/16/19 21:10 04/17/19 04:43 Bedside Glucose 154 104 142 140 Test 04/17/19 06:17 04/17/19 11:31 White Blood Count 7.6 Red Blood Count 3.06 L Hemoglobin 9.0 L Hematocrit 25.7 L Mean Corpuscular 84.0 Volume Mean Corpuscular 29.4 Hemoglobin Mean Corpuscular 35.0 Hemoglobin Concent Red Cell 16.6 H Distribution Width Platelet Count 31 L Mean Platelet Volume 12.0 H Immature 0.400 Granulocytes % Neutrophils % 77.2 H Lymphocytes % 11.4 L Monocytes % 10.2 Eosinophils % 0.7 Basophils % 0.1 Nucleated Red Blood 0.0 Cells % Immature 0.030 Granulocytes # Neutrophils # 5.9 Lymphocytes # 0.9 Monocytes # 0.8 Eosinophils # 0.1 Basophils # 0.0 Nucleated Red Blood 0.0 Cells # Sodium Level 132 L Potassium Level 3.7 Chloride Level 105 Carbon Dioxide Level 18 L Anion Gap 9 Blood Urea Nitrogen 34 H Creatinine 2.10 H Est Glomerular 32 L Filtrat Rate mL/min Glucose Level 146 Calcium Level 7.9 L Prostate Specific 0.5 Antigen Bedside Glucose 148 Subjective 24 Hr Interval Summary Free Text/Dictation Patient still has pain in chest related to esophagitis Exam/Review of Systems Exam Vitals Vital Signs Date Temp Pulse Resp B/P (MAP) Pulse Ox O2 O2 Flow FiO2 Time Delivery Rate 04/17/19 97.8 61 20 182/82 95 Room Air 11:18 (115) 04/15/19 2.0 14:39 Intake and Output 04/16/19 04/16/19 04/17/19 1414:59 22:59 06:59 IntakeIntake Total 480 ml 1360 ml 500 ml BalanceBalance 480 ml 1360 ml 500 ml Constitutional: well developed Head: normocephalic, atraumatic Neck: supple Respiratory: clear to auscultation Cardiovascular: regular rate and rhythm Gastrointestinal: soft, tender Extremities: normal pulses Results Results 24hrs Laboratory Tests Test 04/16/19 12:12 04/16/19 17:06 04/16/19 21:10 04/17/19 04:43 Bedside Glucose 154 104 142 140 Test 04/17/19 06:17 04/17/19 11:31 White Blood Count 7.6 Red Blood Count 3.06 L Hemoglobin 9.0 L Hematocrit 25.7 L Mean Corpuscular 84.0 Volume Mean Corpuscular 29.4 Hemoglobin Mean Corpuscular 35.0 Hemoglobin Concent Red Cell 16.6 H Distribution Width Platelet Count 31 L Mean Platelet Volume 12.0 H Immature 0.400 Granulocytes % Neutrophils % 77.2 H Lymphocytes % 11.4 L Monocytes % 10.2 Eosinophils % 0.7 Basophils % 0.1 Nucleated Red Blood 0.0 Cells % Immature 0.030 Granulocytes # Neutrophils # 5.9 Lymphocytes # 0.9 Monocytes # 0.8 Eosinophils # 0.1 Basophils # 0.0 Nucleated Red Blood 0.0 Cells # Sodium Level 132 L Potassium Level 3.7 Chloride Level 105 Carbon Dioxide Level 18 L Anion Gap 9 Blood Urea Nitrogen 34 H Creatinine 2.10 H Est Glomerular 32 L Filtrat Rate mL/min Glucose Level 146 Calcium Level 7.9 L Prostate Specific 0.5 Antigen Bedside Glucose 148 Medications Medication Current Medications Octreotide Acetate 500 mcg/ Dextrose 50 ml @ 2.5 mls/hr Q20H IV Last administered on 04/17/19at 04:44; Admin Dose 2.5 MLS/HR; Start 04/14/19 at 19:30 Pantoprazole (Protonix Iv) 40 mg BID@06,18 IV Last administered on 04/17/19at 04:44; Admin Dose 40 MG; Start 04/15/19 at 06:00 Dextrose/Sodium Chloride 1,000 ml @ 60 mls/hr [id number] IV Last administered on 04/17/19at 06:40; Admin Dose 60 MLS/HR; Start 04/14/19 at 19:30 Ondansetron HCl (Zofran Inj) 4 mg Q4H PRN IV NAUSEA AND/OR VOMITING Last administered on 04/15/19at 05:16; Admin Dose 4 MG; Start 04/14/19 at 19:30 Hydralazine HCl (Apresoline) 10 mg Q4H PRN IV HIGH BP Last administered on 04/17/19at 11:34; Admin Dose 10 MG; Start 04/14/19 at 19:30 Clonidine HCl (Catapres-Tts 2 Patch) 1 patch Q7D TRANSDERM Last administered on 04/14/19at 19:55; Admin Dose 1 PATCH; Start 04/14/19 at 19:30 Diagnostic Test (Pha) (Accu-Chek) 1 ea 02 XX ; Start 04/15/19 at 02:00 Insulin Aspart (Novolog Insulin Pen) NOVOLOG *MILD* ALGORITHM Q6 SC ; Start 04/15/19 at 00:00 Phytonadione 10 mg/Dextrose 51 ml @ 102 mls/hr DAILY IVPB Last administered on 04/17/19at 08:24; Admin Dose 102 MLS/HR; Start 04/15/19 at 09:00; Stop 04/18/19 at 09:00 Miscellaneous Information 1 ea NOTE XX ; Start 04/15/19 at 08:30 Glucose (Glutose) 15 gm Q15M PRN PO DECREASED GLUCOSE; Start 04/15/19 at 08:30 Glucose (Glutose) 22.5 gm Q15M PRN PO DECREASED GLUCOSE; Start 04/15/19 at 08:30 Dextrose (D50w Syringe) 25 ml Q15M PRN IV DECREASED GLUCOSE; Start 04/15/19 at 08:30 Dextrose (D50w Syringe) 50 ml Q15M PRN IV DECREASED GLUCOSE; Start 04/15/19 at 08:30 Glucagon (Glucagen) 1 mg Q15M PRN IM DECREASED GLUCOSE; Start 04/15/19 at 08:30 Glucose (Glutose) 15 gm Q15M PRN BUCCAL DECREASED GLUCOSE; Start 04/15/19 at 08:30 Ceftriaxone Sodium 50 ml @ 100 mls/hr Q24H IVPB Last administered on 04/16/19at 13:51; Admin Dose 100 MLS/HR; Start 04/15/19 at 12:30 Propranolol HCl (Inderal) 20 mg BID PO Last administered on 04/17/19at 08:25; Admin Dose 20 MG; Start 04/15/19 at 14:00 TAWANDA SMITH Apr 17, 2019 11:53
[2019-04-17] MEDS: CEFTRIAXONE 1 GM/50 ML (PMX) 50 ML IVPB SCH (14:33)
[2019-04-17 15:22] VITALS: BP 172/80; PULSE 58; RESP 16
[2019-04-17 20:00] VITALS: BP 191/81; PULSE 61; RESP 18
[2019-04-18] VITALS (7 sets, daily range): BP systolic 148–184; BP diastolic 72–82; PULSE 55–62; RESP 16–18
[2019-04-18] MEDS: ACCU-CHEK XX SCH (01:34)
[2019-04-18] MEDS: OCTREOTIDE 500 MCG in DEXTROSE 5% 49 ML IV SCH ×2 (03:09→23:34)
[2019-04-18] MEDS: hydrALAzine 20 MG INJ IV PRN ×3 (03:10→23:50)
[2019-04-18] MEDS: INSULIN ASPART [NOVOLOG] 3 ML PEN SC SCH ×5 (06:00→23:34)
[2019-04-18] MEDS: PANTOPRAZOLE 40 MG INJ IV SCH ×2 (06:09→17:42)
--- NOTE | 2019-04-18 08:31 | CONS ---
Assessment/Plan Assessment/Plan Hospital Course (Demo Recall) 63 yo male Pt c/o abd pain, in RUQ, epigastric area. No nausea. Tolerating PO diet. No bm for 3 days, states miralax has helped in past. 1. Liver mass noted on CT 04/01/19 with elevated AFP (2300) -oncology consult, IR for liver biopsy 2. Liver cirrhosis 3. Esophageal varices s/p banding with hemostasis on 04/15/2019 4. UGIB secondary to #3 5. Thrombocytopenia secondary to #2 6. Acute on chronic anemia 7. Abnormal LFTs due to #2 8. H/O hepatoma 9. Hypertension 10. Constipation Plan: Miralax 17 gm PO QD Continue with PPI IV BID Renal diet Oncology consult, IR for liver bx of mass continue Protonix 40mg IV BID Continue beta shayy Pt examined and plan of care d/w Dr. Malone Consultation Date/Type/Reason Admit Date/Time Apr 14, 2019 at 17:07 Initial Consult Date 04/15/19 Requesting Provider: TRAM ROGERS MD Date/Time of Note DATE: 04/18/19 TIME: 08:19 Exam/Review of Systems Exam Vitals Vital Signs Date Temp Pulse Resp B/P (MAP) Pulse Ox O2 O2 Flow FiO2 Time Delivery Rate 04/18/19 99.2 57 17 182/79 100 07:33 (113) 04/17/19 Room Air 15:22 04/15/19 2.0 14:39 Intake and Output 04/17/19 04/17/19 04/18/19 1515:00 23:00 07:00 IntakeIntake Total 600 ml 510 ml 100 ml BalanceBalance 600 ml 510 ml 100 ml Constitutional: alert, oriented, well developed Psych: no complaints Head: normocephalic Eyes: PERRL Respiratory: normal air movement Cardiovascular: regular rate and rhythm Gastrointestinal: ascites, bowel sounds, tender Musculoskeletal: nl gait and stance Extremities: normal pulses Neurological: nl mental status Results Result Diagram: 04/17/19 0617 04/17/19 0617 Results 24hrs Laboratory Tests Test 04/17/19 11:31 04/17/19 17:26 04/18/19 00:56 04/18/19 06:10 Bedside Glucose 148 168 142 138 Medications Medication Current Medications Octreotide Acetate 500 mcg/ Dextrose 50 ml @ 2.5 mls/hr Q20H IV Last administered on 04/18/19 03:09; Admin Dose 2.5 MLS/HR; Start 04/14/19 at 19:30 Pantoprazole (Protonix Iv) 40 mg BID@06,18 IV Last administered on 04/18/19 06:09; Admin Dose 40 MG; Start 04/15/19 at 06:00 Ondansetron HCl (Zofran Inj) 4 mg Q4H PRN IV NAUSEA AND/OR VOMITING Last admin istered on 04/15/19at 05:16; Admin Dose 4 MG; Start 04/14/19 at 19:30 Hydralazine HCl (Apresoline) 10 mg Q4H PRN IV HIGH BP Last administered on 04/18/19 03:10; Admin Dose 10 MG; Start 04/14/19 at 19:30 Clonidine HCl (Catapres-Tts 2 Patch) 1 patch Q7D TRANSDERM Last administered on 04/14/19at 19:55; Admin Dose 1 PATCH; Start 04/14/19 at 19:30 Diagnostic Test (Pha) (Accu-Chek) 1 ea 02 XX ; Start 04/15/19 at 02:00 Insulin Aspart (Novolog Insulin Pen) NOVOLOG *MILD* ALGORITHM Q6 SC Last administered on 04/17/19at 17:53; Admin Dose 1 UNIT; Start 04/15/19 at 00:00 Phytonadione 10 mg/Dextrose 51 ml @ 102 mls/hr DAILY IVPB Last administered on 04/17/19at 08:24; Admin Dose 102 MLS/HR; Start 04/15/19 at 09:00; Stop 04/18/19 at 09:00 Miscellaneous Information 1 ea NOTE XX ; Start 04/15/19 at 08:30 Glucose (Glutose) 15 gm Q15M PRN PO DECREASED GLUCOSE; Start 04/15/19 at 08:30 Glucose (Glutose) 22.5 gm Q15M PRN PO DECREASED GLUCOSE; Start 04/15/19 at 08:30 Dextrose (D50w Syringe) 25 ml Q15M PRN IV DECREASED GLUCOSE; Start 04/15/19 at 08:30 Dextrose (D50w Syringe) 50 ml Q15M PRN IV DECREASED GLUCOSE; Start 04/15/19 at 08:30 Glucagon (Glucagen) 1 mg Q15M PRN IM DECREASED GLUCOSE; Start 04/15/19 at 08:30 Glucose (Glutose) 15 gm Q15M PRN BUCCAL DECREASED GLUCOSE; Start 04/15/19 at 08:30 Ceftriaxone Sodium 50 ml @ 100 mls/hr Q24H IVPB Last administered on 04/17/19 14:33; Admin Dose 100 MLS/HR; Start 04/15/19 at 12:30 Propranolol HCl (Inderal) 20 mg BID PO Last administered on 04/17/19at 20:33; Admin Dose 20 MG; Start 04/15/19 at 14:00 FLORENTIN ARGUELLES Apr 18, 2019 08:30
[2019-04-18] MEDS: PHYTONADIONE 10 MG in DEXTROSE 5% 50 ML IVPB SCH (10:56)
[2019-04-18] MEDS: POLYETHYLENE GLYCOL 17 GM PACKET PO SCH (10:56)
[2019-04-18] MEDS: PROPRANOLOL 20 MG TAB PO SCH ×2 (10:57→21:27)
[2019-04-18] MEDS: CEFTRIAXONE 1 GM/50 ML (PMX) 50 ML IVPB SCH (12:30)
--- NOTE | 2019-04-18 12:37 | CONS ---
Assessment/Plan Assessment/Plan Hospital Course (Demo Recall) #Hepatocellular Carcinoma - Liver mass- 04/01/2019- CT- showed a poorly defined hypodense mass within the right lobe measuring 6.5 x 6.1 cm concerning for neoplasm. - Patient stated he follows his oncologist Dr Jason Hilario in [facility]; who started him on Lenvima 8 mg po daily. will hold Lenvima in the hospital during this episode of acute GIB. pt can resume as an out patient -AFP elevated to 2300 -liver bx not necessary at this time #Upper gastrointestinal bleeding -EGD demonstrates varices. pt is s/p banding #Diabetes mellitus. -,continue management per primary team # Hypertension. -continue management per primary team #Renal insufficiency -management per nephrology Thank you for the opportunity to participate in this patients care A total of 40 minutes of face to face time was spent speaking with the patient, of which greater than 50% was spent in counseling and coordination of care and the detailed question and answer session. Consultation Date/Type/Reason Admit Date/Time Apr 14, 2019 at 17:07 Initial Consult Date 04/15/19 Type of Consult oncology Reason for Consultation hepatocellular carcinoma Requesting Provider: TRAM ROGERS MD Date/Time of Note DATE: 04/18/19 TIME: 12:00 24 HR Interval Summary Free Text/Dictation pt continues on octreotide Exam/Review of Systems Exam Vitals Vital Signs Date Temp Pulse Resp B/P (MAP) Pulse Ox O2 O2 Flow FiO2 Time Delivery Rate 04/18/19 98.7 57 16 153/72 100 11:09 (99) 04/17/19 Room Air 15:22 04/15/19 2.0 14:39 Intake and Output 04/17/19 04/17/19 04/18/19 1515:00 23:00 07:00 IntakeIntake Total 600 ml 510 ml 100 ml BalanceBalance 600 ml 510 ml 100 ml Constitutional: alert, oriented Psych: no complaints Head: normocephalic Eyes: nl conjunctiva ENMT: nl external ears & nose Neck: supple Respiratory: clear to auscultation Cardiovascular: regular rate and rhythm Gastrointestinal: soft Musculoskeletal: nl extremities to inspection Extremities: normal pulses Results Result Diagram: 04/17/19 0617 04/17/19 0617 Results 24hrs Laboratory Tests Test 7/28/19 17:26 04/18/19 00:56 04/18/19 06:10 Bedside Glucose 168 142 138 Medications Medication Current Medications Octreotide Acetate 500 mcg/ Dextrose 50 ml @ 2.5 mls/hr Q20H IV Last administered on 04/18/19 03:09; Admin Dose 2.5 MLS/HR; Start 04/14/19 at 19:30 Pantoprazole (Protonix Iv) 40 mg BID@06,18 IV Last administered on 04/18/19 06:09; Admin Dose 40 MG; Start 04/15/19 at 06:00 Ondansetron HCl (Zofran Inj) 4 mg Q4H PRN IV NAUSEA AND/OR VOMITING Last administered on 04/15/19 05:16; Admin Dose 4 MG; Start 04/14/19 at 19:30 Hydralazine HCl (Apresoline) 10 mg Q4H PRN IV HIGH BP Last administered on 04/18/19at 03:10; Admin Dose 10 MG; Start 04/14/19 at 19:30 Clonidine HCl (Catapres-Tts 2 Patch) 1 patch Q7D TRANSDERM Last administered on 04/14/19at 19:55; Admin Dose 1 PATCH; Start 04/14/19 at 19:30 Diagnostic Test (Pha) (Accu-Chek) 1 ea 02 XX ; Start 04/15/19 at 02:00 Insulin Aspart (Novolog Insulin Pen) NOVOLOG *MILD* ALGORITHM Q6 SC Last a dministered on 04/17/19at 17:53; Admin Dose 1 UNIT; Start 04/15/19 at 00:00 Miscellaneous Information 1 ea NOTE XX ; Start 04/15/19 at 08:30 Glucose (Glutose) 15 gm Q15M PRN PO DECREASED GLUCOSE; Start 04/15/19 at 08:30 Glucose (Glutose) 22.5 gm Q15M PRN PO DECREASED GLUCOSE; Start 04/15/19 at 08:3 0 Dextrose (D50w Syringe) 25 ml Q15M PRN IV DECREASED GLUCOSE; Start 04/15/19 at 08:30 Dextrose (D50w Syringe) 50 ml Q15M PRN IV DECREASED GLUCOSE; Start 04/15/19 at 08:30 Glucagon (Glucagen) 1 mg Q15M PRN IM DECREASED GLUCOSE; Start 04/15/19 at 08:30 Glucose (Glutose) 15 gm Q15M PRN BUCCAL DECREASED GLUCOSE; Start 04/15/19 at 08:30 Ceftriaxone Sodium 50 ml @ 100 mls/hr Q24H IVPB Last administered on 04/17/19at 14:33; Admin Dose 100 MLS/HR; Start 04/15/19 at 12:30 Propranolol HCl (Inderal) 20 mg BID PO Last administered on 04/18/19 10:57; Admin Dose 20 MG; Start 04/15/19 at 14:00 Polyethylene Glycol (Miralax) 17 gm DAILY PO Last administered on 04/18/19at 10:56; Admin Dose 17 GM; Start 04/18/19 at 09:00 MICHAEL RUIZ M.D. Apr 18, 2019 12:10
--- NOTE | 2019-04-18 13:31 | PN ---
Date/Time of Note Date/Time of Note DATE: 04/18/19 TIME: 13:30 Assessment/Plan VTE Prophylaxis Risk score (from Ns)>0 risk: 3 SCD applied (from Ns): Yes Pharmacological prophylaxis: LMWH Lines/Catheters IV Catheter Type (from Nrsg): Peripheral IV Assessment/Plan Hospital Course - Upper gastrointestinal bleeding - for EGD today - Hepatoma. - Diabetes mellitus. - Hypertension. - Renal insufficiency - nephro consult - CKD-3 - Elevated AFP- 2300 - will get Oncology Result Diagram: 04/17/19 0617 04/17/19 0617 Results 24hrs Laboratory Tests Test 04/17/19 17:26 04/18/19 00:56 04/18/19 06:10 04/18/19 12:27 Bedside Glucose 168 142 138 170 Subjective 24 Hr Interval Summary Free Text/Dictation Patient still has some pain in chest related to variceal bleeding Exam/Review of Systems Exam Vitals Vital Signs Date Temp Pulse Resp B/P (MAP) Pulse Ox O2 O2 Flow FiO2 Time Delivery Rate 04/18/19 98.7 57 16 153/72 100 11:09 (99) 04/17/19 Room Air 15:22 04/15/19 2.0 14:39 Intake and Output 04/17/19 04/17/19 04/18/19 1515:00 23:00 07:00 IntakeIntake Total 600 ml 510 ml 100 ml BalanceBalance 600 ml 510 ml 100 ml Constitutional: well developed Head: normocephalic, atraumatic Neck: supple Respiratory: diminished breath sounds Cardiovascular: regular rate and rhythm Gastrointestinal: soft, non-tender Extremities: normal pulses Results Results 24hrs Laboratory Tests Test 04/17/19 17:26 04/18/19 00:56 04/18/19 06:10 04/18/19 12:27 Bedside Glucose 168 142 138 170 Medications Medication Current Medications Octreotide Acetate 500 mcg/ Dextrose 50 ml @ 2.5 mls/hr Q20H IV Last administered on 04/18/19at 03:09; Admin Dose 2.5 MLS/HR; Start 04/14/19 at 19:30 Pantoprazole (Protonix Iv) 40 mg BID@06,18 IV Last administered on 04/18/19at 06:09; Admin Dose 40 MG; Start 04/15/19 at 06:00 Ondansetron HCl (Zofran Inj) 4 mg Q4H PRN IV NAUSEA AND/OR VOMITING Last administered on 04/15/19 05:16; Admin Dose 4 MG; Start 04/14/19 at 19:30 Hydralazine HCl (Apresoline) 10 mg Q4H PRN IV HIGH BP Last administered on 04/18/19 03:10; Admin Dose 10 MG; Start 04/14/19 at 19:30 Clonidine HCl (Catapres-Tts 2 Patch) 1 patch Q7D TRANSDERM Last administered on 04/14/19at 19:55; Admin Dose 1 PATCH; Start 04/14/19 at 19:30 Diagnostic Test (Pha) (Accu-Chek) 1 ea 02 XX ; Start 04/15/19 at 02:00 Insulin Aspart (Novolog Insulin Pen) NOVOLOG *MILD* ALGORITHM Q6 SC Last administered on 04/18/19 12:42; Admin Dose 1 UNIT; Start 04/15/19 at 00:00 Miscellaneous Information 1 ea NOTE XX ; Start 04/15/19 at 08:30 Glucose (Glutose) 15 gm Q15M PRN PO DECREASED GLUCOSE; Start 04/15/19 at 08:30 Glucose (Glutose) 22.5 gm Q15M PRN PO DECREASED GLUCOSE; Start 04/15/19 at 08:30 Dextrose (D50w Syringe) 25 ml Q15M PRN IV DECREASED GLUCOSE; Start 04/15/19 at 08:30 Dextrose (D50w Syringe) 50 ml Q15M PRN IV DECREASED GLUCOSE; Start 04/15/19 at 08:30 Glucagon (Glucagen) 1 mg Q15M PRN IM DECREASED GLUCOSE; Start 04/15/19 at 08:30 Glucose (Glutose) 15 gm Q15M PRN BUCCAL DECREASED GLUCOSE; Start 04/15/19 at 08:30 Ceftriaxone Sodium 50 ml @ 100 mls/hr Q24H IVPB Last administered on 04/18/19 12:30; Admin Dose 100 MLS/HR; Start 04/15/19 at 12:30 Propranolol HCl (Inderal) 20 mg BID PO Last administered on 04/18/19 10:57; A dmin Dose 20 MG; Start 04/15/19 at 14:00 Polyethylene Glycol (Miralax) 17 gm DAILY PO Last administered on 7/29/19at 10:56; Admin Dose 17 GM; Start 04/18/19 at 09:00 TAWANDA SMITH Apr 18, 2019 13:31
--- NOTE | 2019-04-18 17:14 | CONS ---
Assessment/Plan Assessment/Plan Assessment/Plan (Daily) 1. acute kidney injury on CKD III due to Prerenal azotemia from GI bleeding + decompensated liver cirrhosis 2. Acute decompensated liver cirrhosis 3. Upper GI bleeding s/P GI consult 3. H/o Hepatoma with acute transaminitis 4. H/o HTN 5. H/o HL 6. H/o DM II Plan: Las labs on 04/17/19- BUN/Cr 34/2.1- No labs today to review yet Renal US in 01/2018- The right kidney is normal in size measuring 11.7 cm in length. The left kidney is normal in size measuring 11.9 cm in length. The renal echotexture is normal. There is no mass, calculus, or obstructive uropathy. No perinephric fluid collection is seen. will follow up Consultation Date/Type/Reason Admit Date/Time Apr 14, 2019 at 17:07 Initial Consult Date 04/15/19 Type of Consult NEPHROLOGY Requesting Provider: TRAM ROGERS MD Date/Time of Note DATE: 04/18/19 TIME: 17:13 Exam/Review of Systems Exam Vitals Vital Signs Date Temp Pulse Resp B/P (MAP) Pulse Ox O2 O2 Flow FiO2 Time Delivery Rate 04/18/19 98.1 55 16 178/82 99 15:28 (114) 04/17/19 Room Air 15:22 04/15/19 2.0 14:39 Intake and Output 04/17/19 04/17/19 04/18/19 1515:00 23:00 07:00 IntakeIntake Total 600 ml 510 ml 100 ml BalanceBalance 600 ml 510 ml 100 ml Exam Constitutional: alert Respiratory: clear to auscultation, normal air movement Cardiovascular: regular rate and rhythm, nl pulses Gastrointestinal: soft, non-tender Musculoskeletal: nl extremities to inspection Extremities: normal pulses Neurological: PALLIATIVE CARE SPECIALIST II-XII intact, nl mental status, nl speech, nl strength Results Result Diagram: 04/17/1917 04/17/1917 Results 24hrs Laboratory Tests Test 04/17/19 17:26 04/18/19 00:56 04/18/19 06:10 04/18/19 12:27 Bedside Glucose 168 142 138 170 Medications Medication Current Medications Octreotide Acetate 500 mcg/ Dextrose 50 ml @ 2.5 mls/hr Q20H IV Last administered on 04/18/19 03:09; Admin Dose 2.5 MLS/HR; Start 04/14/19 at 19:30 Pantoprazole (Protonix Iv) 40 mg BID@06,18 IV Last administered on 04/18/19 06:09; Admin Dose 40 MG; Start 04/15/19 at 06:00 Ondansetron HCl (Zofran Inj) 4 mg Q4H PRN IV NAUSEA AND/OR VOMITING Last administered on 04/15/19at 05:16; Admin Dose 4 MG; Start 04/14/19 at 19:30 Hydralazine HCl (Apresoline) 10 mg Q4H PRN IV HIGH BP Last administered on 04/18/19at 15:45; Admin Dose 10 MG; Start 04/14/19 at 19:30 Clonidine HCl (Catapres-Tts 2 Patch) 1 patch Q7D TRANSDERM Last administered on 04/14/19at 19:55; Admin Dose 1 PATCH; Start 04/14/19 at 19:30 Diagnostic Test (Pha) (Accu-Chek) 1 ea 02 XX ; Start 04/15/19 at 02:00 Insulin Aspart (Novolog Insulin Pen) NOVOLOG *MILD* ALGORITHM Q6 SC Last administered on 04/18/19at 12:42; Admin Dose 1 UNIT; Start 04/15/19 at 00:00 Miscellaneous Information 1 ea NOTE XX ; Start 04/15/19 at 08:30 Glucose (Glutose) 15 gm Q15M PRN PO DECREASED GLUCOSE; Start 04/15/19 at 08:30 Glucose (Glutose) 22.5 gm Q15M PRN PO DECREASED GLUCOSE; Start 04/15/19 at 08:30 Dextrose (D50w Syringe) 25 ml Q15M PRN IV DECREASED GLUCOSE; Start 04/15/19 at 08:30 Dextrose (D50w Syringe) 50 ml Q15M PRN IV DECREASED GLUCOSE; Start 04/15/19 at 08:30 Glucagon (Glucagen) 1 mg Q15M PRN IM DECREASED GLUCOSE; Start 04/15/19 at 08:30 Glucose (Glutose) 15 gm Q15M PRN BUCCAL DECREASED GLUCOSE; Start 04/15/19 at 08:30 Ceftriaxone Sodium 50 ml @ 100 mls/hr Q24H IVPB Last administered on 04/18/19 12:30; Admin Dose 100 MLS/HR; Start 04/15/19 at 12:30 Propranolol HCl (Inderal) 20 mg BID PO Last administered on 04/18/19 10:57; Admin Dose 20 MG; Start 04/15/19 at 14:00 Polyethylene Glycol (Miralax) 17 gm DAILY PO Last administered on 04/18/19at 10:56; Admin Dose 17 GM; Start 04/18/19 at 09:00 ANTONINA VELIZ MD Apr 18, 2019 17:14
[2019-04-19] VITALS (9 sets, daily range): BP systolic 143–190; BP diastolic 69–86; PULSE 54–63; RESP 17
[2019-04-19] MEDS: ACCU-CHEK XX SCH (01:48)
[2019-04-19] MEDS: hydrALAzine 20 MG INJ IV PRN ×2 (04:17→14:00)
[2019-04-19] MEDS: INSULIN ASPART [NOVOLOG] 3 ML PEN SC SCH ×4 (06:00→20:32)
[2019-04-19] MEDS: PANTOPRAZOLE 40 MG INJ IV SCH ×2 (06:44→17:23)
[2019-04-19] MEDS: PROPRANOLOL 20 MG TAB PO SCH ×2 (08:50→20:32)
[2019-04-19] MEDS: POLYETHYLENE GLYCOL 17 GM PACKET PO SCH (08:50)
--- NOTE | 2019-04-19 08:53 | CONS ---
Assessment/Plan Assessment/Plan Hospital Course (Demo Recall) 63 yo male 1. Liver mass noted on CT 04/01/19 with elevated AFP (2300) -oncology consult, IR for liver biopsy 2. Liver cirrhosis 3. Esophageal varices s/p banding with hemostasis on 04/15/2019 4. UGIB secondary to #3 5. Thrombocytopenia secondary to #2 6. Acute on chronic anemia -downtrending 7. Abnormal LFTs due to #2 8. H/O hepatoma 9. Hypertension 10. Constipation Plan: fob Miralax 17 gm PO QD, dulcolax 20 mg x 1, dulcolax 10 mg supp prn constipation, amitiza 24 mcg bid Continue with PPI IV BID Renal diet Oncology consult, IR for liver bx of mass continue Protonix 40mg IV BID Continue beta shayy Pt examined and plan of care d/w Dr. Malone Consultation Date/Type/Reason Admit Date/Time Apr 14, 2019 at 17:07 Initial Consult Date 04/15/19 Requesting Provider: DOMINIK CHÁVZE Date/Time of Note DATE: 04/19/19 TIME: 08:52 24 HR Interval Summary Free Text/Dictation C/O epigastric pain and constipation x 3 days. Exam/Review of Systems Exam Vitals Vital Signs Date Temp Pulse Resp B/P (MAP) Pulse Ox O2 O2 Flow FiO2 Time Delivery Rate 04/19/19 97.8 59 17 181/78 96 07:33 (112) 04/17/19 Room Air 15:22 04/15/19 2.0 14:39 Intake and Output 04/18/19 04/18/19 04/19/19 1515:00 23:00 07:00 IntakeIntake Total 651 ml 700 ml BalanceBalance 651 ml 700 ml Constitutional: alert, oriented Psych: no complaints Head: normocephalic Eyes: PERRL, icteric Respiratory: normal air movement Cardiovascular: regular rate and rhythm Gastrointestinal: bowel sounds, tender Musculoskeletal: nl extremities to inspection, nl gait and stance Neurological: nl mental status Results Result Diagram: 04/17/19 0617 04/17/19 0617 Results 24hrs Laboratory Tests Test 04/18/19 12:27 04/18/19 17:41 04/18/19 23:33 04/19/19 06:47 Bedside Glucose 170 155 142 154 Medications Medication Current Medications Octreotide Acetate 500 mcg/ Dextrose 50 ml @ 2.5 mls/hr Q20H IV Last administered on 04/18/19 23:34; Admin Dose 2.5 MLS/HR; Start 04/14/19 at 19:30 Pantoprazole (Protonix Iv) 40 mg BID@06,18 IV Last administered on 04/19/19 06:44; Admin Dose 40 MG; Start 04/15/19 at 06:00 Ondansetron HCl (Zofran Inj) 4 mg Q4H PRN IV NAUSEA AND/OR VOMITING Last administered on 04/15/19at 05:16; Admin Dose 4 MG; Start 04/14/19 at 19:30 Hydralazine HCl (Apresoline) 10 mg Q4H PRN IV HIGH BP Last administered on 04/19/19 04:17; Admin Dose 10 MG; Start 04/14/19 at 19:30 Clonidine HCl (Catapres-Tts 2 Patch) 1 patch Q7D TRANSDERM Last administered on 04/14/19at 19:55; Admin Dose 1 PATCH; Start 04/14/19 at 19:30 Diagnostic Test (Pha) (Accu-Chek) 1 ea 02 XX ; Start 04/15/19 at 02:00 Insulin Aspart (Novolog Insulin Pen) NOVOLOG *MILD* ALGORITHM Q6 SC Last administered on 04/18/19at 17:53; Admin Dose 1 UNIT; Start 04/15/19 at 00:00 Miscellaneous Information 1 ea NOTE XX ; Start 04/15/19 at 08:30 Glucose (Glutose) 15 gm Q15M PRN PO DECREASED GLUCOSE; Start 04/15/19 at 08:30 Glucose (Glutose) 22.5 gm Q15M PRN PO DECREASED GLUCOSE; Start 04/15/19 at 08:30 Dextrose (D50w Syringe) 25 ml Q15M PRN IV DECREASED GLUCOSE; Start 04/15/19 at 08:30 Dextrose (D50w Syringe) 50 ml Q15M PRN IV DECREASED GLUCOSE; Start 04/15/19 at 08:30 Glucagon (Glucagen) 1 mg Q15M PRN IM DECREASED GLUCOSE; Start 04/15/19 at 08:30 Glucose (Glutose) 15 gm Q15M PRN BUCCAL DECREASED GLUCOSE; Start 04/15/19 at 08:30 Ceftriaxone Sodium 50 ml @ 100 mls/hr Q24H IVPB Last administered on 04/18/19 12:30; Admin Dose 100 MLS/HR; Start 04/15/19 at 12:30 Polyethylene Glycol (Miralax) 17 gm DAILY PO Last administered on 04/18/19at 10:56; Admin Dose 17 GM; Start 04/18/19 at 09:00 Propranolol HCl (Inderal) 20 mg BID PO Last administered on 04/18/19at 21:27; Admin Dose 20 MG; Start 04/18/19 at 21:00 FLORENTIN ARGUELLES Apr 19, 2019 08:53
[2019-04-19] MEDS ORDERED: BISACODYL 10 MG SUPP PR PRN (09:00)
[2019-04-19] MEDS ORDERED: BISACODYL (EC) 5 MG TAB PO ONE (09:00)
[2019-04-19] MEDS: LUBIPROSTONE 24 MCG CAP PO SCH ×2 (10:30→21:00)
[2019-04-19] MEDS: CEFTRIAXONE 1 GM/50 ML (PMX) 50 ML IVPB SCH (12:52)
--- NOTE | 2019-04-19 13:47 | CONS ---
Assessment/Plan Assessment/Plan Assessment/Plan (Daily) 1. acute kidney injury on CKD III due to Prerenal azotemia from GI bleeding + decompensated liver cirrhosis 2. Acute decompensated liver cirrhosis 3. Upper GI bleeding s/P GI consult 3. H/o Hepatoma with acute transaminitis 4. H/o HTN 5. H/o HL 6. H/o DM II Plan: BUN/Cr stable 34/2.1, other electrolyte stable Renal US in 01/2018- The right kidney is normal in size measuring 11.7 cm in length. The left kidney is normal in size measuring 11.9 cm in length. The renal echotexture is normal. There is no mass, calculus, or obstructive uropathy. No perinephric fluid collection is seen. will follow up Consultation Date/Type/Reason Admit Date/Time Apr 14, 2019 at 17:07 Initial Consult Date 04/15/19 Type of Consult NEPHROLOGY Requesting Provider: DOMINIK CHÁVEZ Date/Time of Note DATE: 04/19/19 TIME: 13:47 Exam/Review of Systems Exam Vitals Vital Signs Date Temp Pulse Resp B/P (MAP) Pulse Ox O2 O2 Flow FiO2 Time Delivery Rate 04/19/19 98.9 54 17 188/83 100 11:32 (118) 04/17/19 Room Air 15:22 04/15/19 2.0 14:39 Intake and Output 04/18/19 04/18/19 04/19/19 1515:00 23:00 07:00 IntakeIntake Total 651 ml 700 ml BalanceBalance 651 ml 700 ml Results Result Diagram: 04/17/1961604/17/1917 Results 24hrs Laboratory Tests Test 04/18/19 17:41 04/18/19 23:33 04/19/19 06:47 04/19/19 12:51 Bedside Glucose 155 142 154 174 Medications Medication Current Medications Octreotide Acetate 500 mcg/ Dextrose 50 ml @ 2.5 mls/hr Q20H IV Last administered on 04/18/19at 23:34; Admin Dose 2.5 MLS/HR; Start 04/14/19 at 19:30 Pantoprazole (Protonix Iv) 40 mg BID@06,18 IV Last administered on 04/19/19at 06:44; Admin Dose 40 MG; Start 04/15/19 at 06:00 Ondansetron HCl (Zofran Inj) 4 mg Q4H PRN IV NAUSEA AND/OR VOMITING Last administered on 04/15/19at 05:16; Admin Dose 4 MG; Start 04/14/19 at 19:30 Hydralazine HCl (Apresoline) 10 mg Q4H PRN IV HIGH BP Last administered on 04/19/19 04:17; Admin Dose 10 MG; Start 04/14/19 at 19:30 Clonidine HCl (Catapres-Tts 2 Patch) 1 patch Q7D TRANSDERM Last administered on 04/14/19at 19:55; Admin Dose 1 PATCH; Start 04/14/19 at 19:30 Diagnostic Test (Pha) (Accu-Chek) 1 ea 02 XX ; Start 04/15/19 at 02:00 Insulin Aspart (Novolog Insulin Pen) NOVOLOG *MILD* ALGORITHM Q6 SC Last administered on 04/19/19at 13:30; Admin Dose 1 UNIT; Start 04/15/19 at 00:00 Miscellaneous Information 1 ea NOTE XX ; Start 04/15/19 at 08:30 Glucose (Glutose) 15 gm Q15M PRN PO DECREASED GLUCOSE; Start 04/15/19 at 08:30 Glucose (Glutose) 22.5 gm Q15M PRN PO DECREASED GLUCOSE; Start 04/15/19 at 08:30 Dextrose (D50w Syringe) 25 ml Q15M PRN IV DECREASED GLUCOSE; Start 04/15/19 at 08:30 Dextrose (D50w Syringe) 50 ml Q15M PRN IV DECREASED GLUCOSE; Start 04/15/19 at 08:30 Glucagon (Glucagen) 1 mg Q15M PRN IM DECREASED GLUCOSE; Start 04/15/19 at 08:30 Glucose (Glutose) 15 gm Q15M PRN BUCCAL DECREASED GLUCOSE; Start 04/15/19 at 08:30 Ceftriaxone Sodium 50 ml @ 100 mls/hr Q24H IVPB Last administered on 04/19/19at 12:52; Admin Dose 100 MLS/HR; Start 04/15/19 at 12:30 Polyethylene Glycol (Miralax) 17 gm DAILY PO Last administered on 04/19/19at 08:50; Admin Dose 17 GM; Start 04/18/19 at 09:00 Propranolol HCl (Inderal) 20 mg BID PO Last administered on 04/19/19at 08:50; Admin Dose 20 MG; Start 04/18/19 at 21:00 Bisacodyl (Dulcolax Supp) 10 mg Q48H PRN [place] CONSTIPATION; Start 04/19/19 at 09:00 Lubiprostone (Amitiza) 24 mcg BID PO ; Start 04/19/19 at 09:30 ANTONINA VELIZ MD Apr 19, 2019 13:47
--- NOTE | 2019-04-19 14:17 | CONS ---
Assessment/Plan Assessment/Plan Hospital Course (Demo Recall) #Hepatocellular Carcinoma - Liver mass- 04/01/2019- CT- showed a poorly defined hypodense mass within the right lobe measuring 6.5 x 6.1 cm concerning for neoplasm. - Patient stated he follows his oncologist Dr Jason Hilario in [facility]; who started him on Lenvima 8 mg po daily. will hold Lenvima in the hospital during this episode of acute GIB. pt can resume as an out patient -AFP elevated to 2300 -liver bx not necessary at this time #Upper gastrointestinal bleeding -EGD demonstrates varices. pt is s/p banding #Diabetes mellitus. -,continue management per primary team # Hypertension. -continue management per primary team #Renal insufficiency -management per nephrology Thank you for the opportunity to participate in this patients care A total of 40 minutes of face to face time was spent speaking with the patient, of which greater than 50% was spent in counseling and coordination of care and the detailed question and answer session. Consultation Date/Type/Reason Admit Date/Time Apr 14, 2019 at 17:07 Initial Consult Date 04/15/19 Type of Consult oncology Reason for Consultation HCC Requesting Provider: DOMINIK CHÁVEZ Date/Time of Note DATE: 04/19/19 TIME: 14:16 24 HR Interval Summary Free Text/Dictation HG stable Exam/Review of Systems Exam Vitals Vital Signs Date Temp Pulse Resp B/P (MAP) Pulse Ox O2 O2 Flow FiO2 Time Delivery Rate 04/19/19 186/86 14:00 (119) 04/19/19 98.9 54 17 100 11:32 04/17/19 Room Air 15:22 04/15/19 2.0 14:39 Intake and Output 04/18/19 04/18/19 04/19/19 1515:00 23:00 07:00 IntakeIntake Total 651 ml 700 ml BalanceBalance 651 ml 700 ml Constitutional: alert, oriented Psych: no complaints Head: normocephalic Eyes: nl conjunctiva ENMT: nl external ears & nose Neck: supple Respiratory: clear to auscultation Cardiovascular: regular rate and rhythm Gastrointestinal: soft Musculoskeletal: nl extremities to inspection Results Result Diagram: 04/17/19 0617 04/17/19 0617 Results 24hrs Laboratory Tests Test 04/18/19 17:41 04/18/19 23:33 04/19/19 06:47 04/19/19 12:51 Bedside Glucose 155 142 154 174 Medications Medication Current Medications Octreotide Acetate 500 mcg/ Dextrose 50 ml @ 2.5 mls/hr Q20H IV Last administered on 04/18/19at 23:34; Admin Dose 2.5 MLS/HR; Start 04/14/19 at 19:30 Pantoprazole (Protonix Iv) 40 mg BID@06,18 IV Last administered on 04/19/19at 06:44; Admin Dose 40 MG; Start 04/15/19 at 06:00 Ondansetron HCl (Zofran Inj) 4 mg Q4H PRN IV NAUSEA AND/OR VOMITING Last administered on 04/15/19at 05:16; Admin Dose 4 MG; Start 04/14/19 at 19:30 Hydralazine HCl (Apresoline) 10 mg Q4H PRN IV HIGH BP Last administered on 04/19/19at 14:00; Admin Dose 10 MG; Start 04/14/19 at 19:30 Clonidine HCl (Catapres-Tts 2 Patch) 1 patch Q7D TRANSDERM Last administered on 04/14/19at 19:55; Admin Dose 1 PATCH; Start 04/14/19 at 19:30 Diagnostic Test (Pha) (Accu-Chek) 1 ea 02 XX ; Start 04/15/19 at 02:00 Insulin Aspart (Novolog Insulin Pen) NOVOLOG *MILD* ALGORITHM Q6 SC Last administered on 04/19/19at 13:30; Admin Dose 1 UNIT; Start 04/15/19 at 00:00 Miscellaneous Information 1 ea NOTE XX ; Start 04/15/19 at 08:30 Glucose (Glutose) 15 gm Q15M PRN PO DECREASED GLUCOSE; Start 04/15/19 at 08:30 Glucose (Glutose) 22.5 gm Q15M PRN PO DECREASED GLUCOSE; Start 04/15/19 at 08:30 Dextrose (D50w Syringe) 25 ml Q15M PRN IV DECREASED GLUCOSE; Start 04/15/19 at 08:30 Dextrose (D50w Syringe) 50 ml Q15M PRN IV DECREASED GLUCOSE; Start 04/15/19 at 08:30 Glucagon (Glucagen) 1 mg Q15M PRN IM DECREASED GLUCOSE; Start 04/15/19 at 08:30 Glucose (Glutose) 15 gm Q15M PRN BUCCAL DECREASED GLUCOSE; Start 04/15/19 at 08:30 Ceftriaxone Sodium 50 ml @ 100 mls/hr Q24H IVPB Last administered on 04/19/19at 12:52; Admin Dose 100 MLS/HR; Start 04/15/19 at 12:30 Polyethylene Glycol (Miralax) 17 gm DAILY PO Last administered on 04/19/19at 08:50; Admin Dose 17 GM; Start 04/18/19 at 09:00 Propranolol HCl (Inderal) 20 mg BID PO Last administered on 04/19/19at 08:50; Admin Dose 20 MG; Start 04/18/19 at 21:00 Bisacodyl (Dulcolax Supp) [address] CONSTIPATION; Start 04/19/19 at 09:00 Lubiprostone (Amitiza) 24 mcg BID PO ; Start 04/19/19 at 09:30 MICHAEL RUIZ M.D. Apr 19, 2019 14:17
--- NOTE | 2019-04-19 14:23 | PN ---
Date/Time of Note Date/Time of Note DATE: 04/19/19 TIME: 14:23 Assessment/Plan VTE Prophylaxis Risk score (from Ns)>0 risk: 3 SCD applied (from [facility] [place]): No SCD contraindicated: other Pharmacological prophylaxis: LMWH Lines/Catheters IV [facility]ter Type ([facility] Peripheral IV Assessment/Plan Hospital Course - Upper gastrointestinal bleeding - for EGD today - Hepatoma. - Diabetes mellitus. - Hypertension. - Renal insufficiency - nephro consult - CKD-3 - Elevated AFP- 2300 - will get Oncology Result Diagram: 04/17/19 0617 04/17/1917 Results 24hrs Laboratory Tests Test 04/18/19 17:41 04/18/19 23:33 04/19/19 06:47 04/19/19 12:51 Bedside Glucose 155 142 154 174 Subjective 24 Hr Interval Summary Free Text/Dictation Patient still has some abdominal pain Exam/Review of Systems Exam Vitals Vital Signs Date Temp Pulse Resp B/P (MAP) Pulse Ox O2 O2 Flow FiO2 Time Delivery Rate 04/19/19 186/86 14:00 (119) 04/19/19 98.9 54 17 100 11:32 04/17/19 Room Air 15:22 04/15/19 2.0 14:39 Intake and Output 04/18/19 04/18/19 04/19/19 1515:00 23:00 07:00 IntakeIntake Total 651 ml 700 ml BalanceBalance 651 ml 700 ml Constitutional: well developed Head: normocephalic, atraumatic Neck: supple Respiratory: diminished breath sounds Cardiovascular: regular rate and rhythm Gastrointestinal: soft, non-tender Extremities: normal pulses Results Results 24hrs Laboratory Tests Test 04/18/19 17:41 04/18/19 23:33 04/19/19 06:47 04/19/19 12:51 Bedside Glucose 155 142 154 174 Medications Medication Current Medications Octreotide Acetate 500 mcg/ Dextrose 50 ml @ 2.5 mls/hr Q20H IV Last administered on 04/18/19at 23:34; Admin Dose 2.5 MLS/HR; Start 04/14/19 at 19:30 Pantoprazole (Protonix Iv) 40 mg BID@06,18 IV Last administered on 04/19/19at 06:44; Admin Dose 40 MG; Start 04/15/19 at 06:00 Ondansetron HCl (Zofran Inj) 4 mg Q4H PRN IV NAUSEA AND/OR VOMITING Last administered on 04/15/19at 05:16; Admin Dose 4 MG; Start 04/14/19 at 19:30 Hydralazine HCl (Apresoline) 10 mg Q4H PRN IV HIGH BP Last administered on 04/19/19at 14:00; Admin Dose 10 MG; Start 04/14/19 at 19:30 Clonidine HCl (Catapres-Tts 2 Patch) 1 patch Q7D TRANSDERM Last administered on 04/14/19at 19:55; Admin Dose 1 PATCH; Start 04/14/19 at 19:30 Diagnostic Test (Pha) (Accu-Chek) 1 ea 02 XX ; Start 04/15/19 at 02:00 Insulin Aspart (Novolog Insulin Pen) NOVOLOG *MILD* ALGORITHM Q6 SC Last administered on 04/19/19at 13:30; Admin Dose 1 UNIT; Start 04/15/19 at 00:00 Miscellaneous Information 1 ea NOTE XX ; Start 04/15/19 at 08:30 Glucose (Glutose) 15 gm Q15M PRN PO DECREASED GLUCOSE; Start 04/15/19 at 08:30 Glucose (Glutose) 22.5 gm Q15M PRN PO DECREASED GLUCOSE; Start 04/15/19 at 08:30 Dextrose (D50w Syringe) 25 ml Q15M PRN IV DECREASED GLUCOSE; Start 04/15/19 at 08:30 Dextrose (D50w Syringe) 50 ml Q15M PRN IV DECREASED GLUCOSE; Start 04/15/19 at 08:30 Glucagon (Glucagen) 1 mg Q15M PRN IM DECREASED GLUCOSE; Start 04/15/19 at 08:30 Glucose (Glutose) 15 gm Q15M PRN BUCCAL DECREASED GLUCOSE; Start 04/15/19 at 08:30 Ceftriaxone Sodium 50 ml @ 100 mls/hr Q24H IVPB Last administered on 04/19/19at 12:52; Admin Dose 100 MLS/HR; Start 04/15/19 at 12:30 Polyethylene Glycol (Miralax) 17 gm DAILY PO Last administered on 04/19/19at 08:50; Admin Dose 17 GM; Start 04/18/19 at 09:00 Propranolol HCl (Inderal) 20 mg BID PO Last administered on 04/19/19at 08:50; Admin Dose 20 MG; Start 04/18/19 at 21:00 Bisacodyl (Dulcolax Supp) 10 mg Q48H PRN [place] CONSTIPATION; Start 04/19/19 at 09:00 Lubiprostone (Amitiza) 24 mcg BID PO ; Start 04/19/19 at 09:30 TAWANDA SMITH Apr 19, 2019 14:23
[2019-04-19] MEDS ORDERED: CEFTRIAXONE 1 GM/NS 50 ML IVPB SCH (16:00)
[2019-04-19] MEDS: OCTREOTIDE 500 MCG in DEXTROSE 5% 49 ML IV SCH (20:31)
[2019-04-20] VITALS (7 sets, daily range): BP systolic 149–201; BP diastolic 70–94; PULSE 53–62; RESP 17–18
[2019-04-20] MEDS: hydrALAzine 20 MG INJ IV PRN ×2 (00:15→14:03)
[2019-04-20] MEDS: ACCU-CHEK XX SCH (02:00)
[2019-04-20] MEDS: PANTOPRAZOLE 40 MG INJ IV SCH ×2 (06:06→17:37)
[2019-04-20] MEDS: LUBIPROSTONE 24 MCG CAP PO SCH (08:47)
[2019-04-20] MEDS: PROPRANOLOL 20 MG TAB PO SCH (08:47)
[2019-04-20] MEDS: POLYETHYLENE GLYCOL 17 GM PACKET PO SCH (08:47)
[2019-04-20] MEDS: INSULIN ASPART [NOVOLOG] 3 ML PEN SC SCH ×3 (08:58→17:37)
[2019-04-20] MEDS ORDERED: AMLODIPINE 5 MG TAB PO SCH (09:00)
--- NOTE | 2019-04-20 09:54 | DS ---
Date/Time of Note Date/Time of Note DATE: 04/20/19 TIME: 09:52 Discharge Summary Admission/Discharge Info Admit Date/Time Apr 14, 2019 at 17:07 Discharge Date/Time 04/20/19 Discharge Diagnosis - Upper gastrointestinal bleeding - for EGD today - Hepatoma. - Diabetes mellitus. - Hypertension. - Renal insufficiency - nephro consult - CKD-3 - Elevated AFP- 2300 - will get Oncology Patient Condition: Fair Consults Oncology Gastroenterology Nephrology Procedures EGD Hx of Present Illness Patient with liver mass comes in with GI bleeding. Hospital Course Patient with liver mass comes in with GI bleeding. Patient had EGD and was found to have varices. The varices were treated and the patient was monitored. Patient was then felt to be stable and will be discharged for him to follow up with his regular oncologist. - Upper gastrointestinal bleeding - Hepatoma. - Diabetes mellitus. - Hypertension. - Renal insufficiency - nephro consult - CKD-3 - Elevated AFP- 2300 - Oncology following Home Meds Active Scripts Polyethylene Glycol* (Miralax*) 17 Gm Powd.pack, 17 GM PO DAILY, #7 Prov:TIA LOPEZ MD 04/01/19 Hydroxyzine Hcl* (Atarax*) 25 Mg Tab, 25 MG PO Q6H PRN for ITCHING for 14 Days, TAB Prov:TIA LOPEZ MD 04/01/19 [Vancomycin Iv Per Pharmacy] 1 EA EACH No Conflict Check, 0 EA XX .PER PROTOCOL for 42 Days Prov:CARLIE CARDONA NP 02/12/18 Hydrocodone/Acetaminophen ([place] 5-325 Tablet) 1 Each Tablet, 1 EACH PO Q4, #30 TAB Prov:CARLIE CARDONA NP 02/12/18 Levofloxacin* (Levofloxacin*) 500 Mg Tablet, 500 MG PO DAILY, #42 TAB Prov:CARLIE CARDONA NP 02/12/18 Reported Medications Linagliptin (TRADJENTA) 5 Mg Tablet, 1, #30 02/04/18 Amlodipine Besylate* (Amlodipine Besylate*) 5 Mg Tablet, 1 TAB, #30 02/04/18 Benazepril Hcl* (Benazepril Hcl*) 40 Mg Tablet, 1 TAB, #30 02/04/18 Primary Care Provider [facility] Pending Labs Laboratory Tests Test 04/19/19 12:51 04/19/19 17:23 7/30/19 19:00 04/19/19 20:27 Bedside 174 127 148 Glucose mg/dL (70-220) mg/dL (70-220) mg/dL (70-220) Stool Occult POSITIVE (NEGA Blood TIVE) Test 04/20/19 05:41 04/20/19 05:42 04/20/19 07:38 White Blood 4.0 Count 10^3/ul (4.8-10 .8) Red Blood 3.08 Count 10^6/ul (4.70-6 .10) Hemoglobin 9.1 g/dl (14.0-18.0 ) Hematocrit 26.0 % (42.0-52.0) Mean 84.4 Corpuscular fl (82.0-101.0) Volume Mean 29.5 Corpuscular pg (29.0-33.0) Hemoglobin Mean 35.0 Corpuscular g/dl (32.0-37.0 Hemoglobin Conc ) ent Red Cell 16.8 Distribution % (11.5-14.5) Width Platelet Count 44 10^3/UL (140-41 5) Mean Platelet 11.5 Volume fl (7.4-10.4) Immature 0.500 Granulocytes % % (0.001-0.429) Neutrophils % 58.2 % (39.0-77.0) Lymphocytes % 20.4 % (15.0-51.0) Monocytes % 17.8 % (0.0-11.0) Eosinophils % 2.8 % (0.0-7.0) Basophils % 0.3 % (0.0-2.0) Nucleated Red 0.0 Blood Cells % /100WBC (0.0-0. 0) Immature 0.020 Granulocytes # 10^3/ul (0.0-0. 031) Neutrophils # 2.3 10^3/ul (1.6-7. 5) Lymphocytes # 0.8 10^3/ul (0.8-2. 9) Monocytes # 0.7 10^3/ul (0.3-0. 9) Eosinophils # 0.1 10^3/ul (0.0-0. 5) Basophils # 0.0 10^3/ul (0.0-0. 1) Nucleated Red 0.0 Blood Cells # 10^3/ul (0.0-0. 0) Phosphorus 4.2 Level mg/dl (2.5-4.9) Magnesium 1.6 Level mg/dl (1.7-2.5) Prothrombin 16.4 Time Sec (11.9-14.9 ) Prothrombin 1.3 Time Ratio INR 1.31 International Normalized Rati o Activated 43.0 Partial Thrombo Sec (23.0-35.0 plast Time ) Sodium Level 130 mmol/L (135-14 4) Potassium 3.9 Level mmol/L (3.5-5. 1) Chloride Level 103 mmol/L (97-110 ) Carbon Dioxide 14 Level mmol/L (21-31) Anion Gap 13 (5-13) Blood Urea 40 Nitrogen mg/dl (7-20) Creatinine 2.06 mg/dl (0.61-1. 24) Est Glomerular 33 Filtrat mL/min (>60) Rate mL/min Glucose Level 131 mg/dl (70-220) Calcium Level 8.1 mg/dl (8.4-10. 2) Total 0.7 Bilirubin mg/dl (0.2-1.3 ) Direct 0.00 Bilirubin mg/dl (0.00-0. 20) Indirect 0.7 Bilirubin mg/dl (0-1.1) Aspartate Amino 41 Transf (AST/SGO IU/L (15-46) T) Alanine 171 Aminotransferas IU/L (13-69) e (ALT/SGPT) Alkaline 235 Phosphatase IU/L (42-121) Total Protein 6.0 g/dl (6.1-8.1) Albumin 2.9 g/dl (3.3-4.9) Globulin 3.10 g/dl (1.3-3.2) Albumin/Globuli 0.93 n Ratio Bedside 143 Glucose mg/dL (70-220) TAWANDA SMITH Apr 20, 2019 09:54
--- NOTE | 2019-04-20 10:07 | CONS ---
Assessment/Plan Assessment/Plan Assessment/Plan (Daily) 1. acute kidney injury on CKD III due to Prerenal azotemia from GI bleeding + decompensated liver cirrhosis 2. Acute decompensated liver cirrhosis 3. Upper GI bleeding s/P GI consult 3. H/o Hepatoma with acute transaminitis 4. H/o HTN 5. H/o HL 6. H/o DM II Plan: BUN/Cr stable 40/2.06, Zak 130 , other electrolyte stable Renal US in 01/2018- The right kidney is normal in size measuring 11.7 cm in length. The left kidney is normal in size measuring 11.9 cm in length. The renal echotexture is normal. There is no mass, calculus, or obstructive uropathy. No perinephric fluid collection is seen. d.c plan today will follow up Consultation Date/Type/Reason Admit Date/Time Apr 14, 2019 at 17:07 Initial Consult Date 04/15/19 Type of Consult NEPHROLOGY Requesting Provider: DOMINIK CHÁVEZ Date/Time of Note DATE: 04/20/19 TIME: 10:07 Exam/Review of Systems Exam Vitals Vital Signs Date Temp Pulse Resp B/P (MAP) Pulse Ox O2 O2 Flow FiO2 Time Delivery Rate 04/20/19 98.1 53 17 180/73 99 07:14 (108) 04/17/19 Room Air 15:22 Intake and Output 04/19/19 04/19/19 04/20/19 1515:00 23:00 07:00 IntakeIntake Total 870 ml 395 ml OutputOutput Total 250 ml BalanceBalance 620 ml 395 ml Results Result Diagram: 04/20/19 0541 04/20/19 0542 Results 24hrs Laboratory Tests Test 04/19/19 12:51 04/19/19 17:23 04/19/19 19:00 04/19/19 20:27 Bedside Glucose 174 127 148 Stool Occult Blood POSITIVE Test 04/20/19 05:41 04/20/19 05:42 04/20/19 07:38 White Blood Count 4.0 #L Red Blood Count 3.08 L Hemoglobin 9.1 L Hematocrit 26.0 L Mean Corpuscular 84.4 Volume Mean Corpuscular 29.5 Hemoglobin Mean Corpuscular 35.0 Hemoglobin Concent Red Cell 16.8 H Distribution Width Platelet Count 44 #L Mean Platelet Volume 11.5 H Immature 0.500 H Granulocytes % Neutrophils % 58.2 Lymphocytes % 20.4 Monocytes % 17.8 H Eosinophils % 2.8 Basophils % 0.3 Nucleated Red Blood 0.0 Cells % Immature 0.020 Granulocytes # Neutrophils # 2.3 Lymphocytes # 0.8 Monocytes # 0.7 Eosinophils # 0.1 Basophils # 0.0 Nucleated Red Blood 0.0 Cells # Phosphorus Level 4.2 Magnesium Level 1.6 L Prothrombin Time 16.4 H Prothrombin Time 1.3 Ratio INR International 1.31 Normalized Ratio Activated 43.0 H Partial Thromboplast Time Sodium Level 130 L Potassium Level 3.9 Chloride Level 103 Carbon Dioxide Level 14 L Anion Gap 13 Blood Urea Nitrogen 40 H Creatinine 2.06 H Est Glomerular 33 L Filtrat Rate mL/min Glucose Level 131 Calcium Level 8.1 L Total Bilirubin 0.7 Direct Bilirubin 0.00 Indirect Bilirubin 0.7 Aspartate Amino 41 Transf (AST/SGOT) Alanine 171 H Aminotransferase (AL T/SGPT) Alkaline Phosphatase 235 H Total Protein 6.0 L Albumin 2.9 L Globulin 3.10 Albumin/Globulin 0.93 Ratio Bedside Glucose 143 Medications Medication Current Medications Octreotide Acetate 500 mcg/ Dextrose 50 ml @ 2.5 mls/hr Q20H IV Last administered on 04/19/19 20:31; Admin Dose 2.5 MLS/HR; Start 04/14/19 at 19:30 Pantoprazole (Protonix Iv) 40 mg BID@06,18 IV Last administered on 04/20/19 06:06; Admin Dose 40 MG; Start 04/15/19 at 06:00 Ondansetron HCl (Zofran Inj) 4 mg Q4H PRN IV NAUSEA AND/OR VOMITING Last administered on 04/15/19at 05:16; Admin Dose 4 MG; Start 04/14/19 at 19:30 Hydralazine HCl (Apresoline) 10 mg Q4H PRN IV HIGH BP Last administered on 04/20/19at 00:15; Admin Dose 10 MG; Start 04/14/19 at 19:30 Clonidine HCl (Catapres-Tts 2 Patch) 1 patch Q7D TRANSDERM Last administered on 04/14/19at 19:55; Admin Dose 1 PATCH; Start 04/14/19 at 19:30 Diagnostic Test (Pha) (Accu-Chek) 1 ea 02 XX ; Start 04/15/19 at 02:00 Miscellaneous Information 1 ea NOTE XX ; Start 04/15/19 at 08:30 Glucose (Glutose) 15 gm Q15M PRN PO DECREASED GLUCOSE; Start 04/15/19 at 08:30 Glucose (Glutose) 22.5 gm Q15M PRN PO DECREASED GLUCOSE; Start 04/15/19 at 08:30 Dextrose (D50w Syringe) 25 ml Q15M PRN IV DECREASED GLUCOSE; Start 04/15/19 at 08:30 Dextrose (D50w Syringe) 50 ml Q15M PRN IV DECREASED GLUCOSE; Start 04/15/19 at 08:30 Glucagon (Glucagen) 1 mg Q15M PRN IM DECREASED GLUCOSE; Start 04/15/19 at 08:30 Glucose (Glutose) 15 gm Q15M PRN BUCCAL DECREASED GLUCOSE; Start 04/15/19 at 08:30 Polyethylene Glycol (Miralax) 17 gm DAILY PO Last administered on 04/19/19at 08:50; Admin Dose 17 GM; Start 04/18/19 at 09:00 Propranolol HCl (Inderal) 20 mg BID PO Last administered on 04/20/19at 08:47; Ad min Dose 20 MG; Start 04/18/19 at 21:00 Bisacodyl (Dulcolax Supp) 10 mg Q48H PRN [place] CONSTIPATION; Start 04/19/19 at 09:00 Lubiprostone (Amitiza) 24 mcg BID PO ; Start 04/19/19 at 09:30 Amlodipine Besylate (Norvasc) 5 mg DAILY PO Last administered on 04/20/19at 08:48; Admin Dose 5 MG; Start 04/20/19 at 09:00 Ceftriaxone Sodium 50 ml @ 100 mls/hr Q24H IVPB ; Start 04/20/19 at 13:00 Insulin Aspart (Novolog Insulin Pen) NOVOLOG *MILD* ALGORITHM WITH MEALS BEDTIME SC Last administered on 04/20/19at 08:58; Admin Dose 1 UNIT; Start 04/19/19 at 21:00 ANTONINA VELIZ MD Apr 20, 2019 10:07
[2019-04-20] MEDS ORDERED: AMLODIPINE 5 MG TAB PO ONE (12:00)
[2019-04-20] MEDS ORDERED: CEFTRIAXONE 1 GM/NS 50 ML IVPB SCH (13:00)
--- NOTE | 2019-04-20 17:15 | CONS ---
Assessment/Plan Assessment/Plan Assessment/Plan (Daily) ospital Course (Demo Recall) 63 yo male 1. Liver mass noted on CT 04/01/19 with elevated AFP (2300) -oncology consult, IR for liver biopsy 2. Liver cirrhosis 3. Esophageal varices s/p banding with hemostasis on 04/15/2019 4. UGIB secondary to #3 5. Thrombocytopenia secondary to #2 6. Acute on chronic anemia -downtrending 7. Abnormal LFTs due to #2 8. H/O hepatoma 9. Hypertension 10. Constipation Plan: fob Miralax 17 gm PO QD, dulcolax 20 mg x 1, dulcolax 10 mg supp prn constipation, amitiza 24 mcg bid Continue with PPI IV BID Renal diet Oncology consult, IR for liver bx of mass continue Protonix 40mg IV BID Continue beta shayy Optimize the patient's blood pressure DC octreotide Consultation Date/Type/Reason Admit Date/Time Apr 14, 2019 at 17:07 Initial Consult Date Requesting Provider: DOMINIK CHÁVEZ Date/Time of Note DATE: 04/20/19 TIME: 17:14 24 HR Interval Summary Constitutional: no complaints, improved Exam/Review of Systems Exam Vitals Vital Signs Date Temp Pulse Resp B/P (MAP) Pulse Ox O2 O2 Flow FiO2 Time Delivery Rate 04/20/19 54 164/78 15:48 (106) 04/20/19 98.4 17 99 15:18 04/17/19 Room Air 15:22 Intake and Output 04/19/19 04/19/19 04/20/19 1515:00 23:00 07:00 IntakeIntake Total 870 ml 395 ml OutputOutput Total 250 ml BalanceBalance 620 ml 395 ml Constitutional: alert, oriented, well developed Psych: no complaints, nl mood/affect Head: normocephalic, atraumatic Eyes: nl conjunctiva, EOMI, nl lids, nl sclera, PERRL ENMT: nl external ears & nose, nl lips & teeth, nl nasal mucosa & septum Neck: supple, non-tender Respiratory: clear to auscultation, normal air movement Cardiovascular: regular rate and rhythm, nl pulses Gastrointestinal: soft, nl liver, spleen, non-tender Musculoskeletal: nl extremities to inspection, nl gait and stance Extremities: normal pulses Neurological: [employer]NAG[employer] II-XII intact, nl mental status, nl speech, nl strength Skin: nl turgor; No rash or lesions Lymph: nl lymph nodes Results Result Diagram: 04/20/19 0541 04/20/19 0542 Results 24hrs Laboratory Tests Test 04/19/19 17:23 04/19/19 19:00 04/19/19 20:27 04/20/19 05:41 Bedside Glucose 127 148 Stool Occult Blood POSITIVE White Blood Count 4.0 #L Red Blood Count 3.08 L Hemoglobin 9.1 L Hematocrit 26.0 L Mean Corpuscular 84.4 Volume Mean Corpuscular 29.5 Hemoglobin Mean Corpuscular 35.0 Hemoglobin Concent Red Cell 16.8 H Distribution Width Platelet Count 44 #L Mean Platelet Volume 11.5 H Immature 0.500 H Granulocytes % Neutrophils % 58.2 Lymphocytes % 20.4 Monocytes % 17.8 H Eosinophils % 2.8 Basophils % 0.3 Nucleated Red Blood 0.0 Cells % Immature 0.020 Granulocytes # Neutrophils # 2.3 Lymphocytes # 0.8 Monocytes # 0.7 Eosinophils # 0.1 Basophils # 0.0 Nucleated Red Blood 0.0 Cells # Phosphorus Level 4.2 Magnesium Level 1.6 L Test 04/20/19 05:42 04/20/19 07:38 04/20/19 12:08 Prothrombin Time 16.4 H Prothrombin Time 1.3 Ratio INR International 1.31 Normalized Ratio Activated 43.0 H Partial Thromboplast Time Sodium Level 130 L Potassium Level 3.9 Chloride Level 103 Carbon Dioxide Level 14 L Anion Gap 13 Blood Urea Nitrogen 40 H Creatinine 2.06 H Est Glomerular 33 L Filtrat Rate mL/min Glucose Level 131 Calcium Level 8.1 L Total Bilirubin 0.7 Direct Bilirubin 0.00 Indirect Bilirubin 0.7 Aspartate Amino 41 Transf (AST/SGOT) Alanine 171 H Aminotransferase (AL T/SGPT) Alkaline Phosphatase 235 H Total Protein 6.0 L Albumin 2.9 L Globulin 3.10 Albumin/Globulin 0.93 Ratio Bedside Glucose 143 142 Medications Medication Current Medications Octreotide Acetate 500 mcg/ Dextrose 50 ml @ 2.5 mls/hr Q20H IV Last administered on 04/19/19at 20:31; Admin Dose 2.5 MLS/HR; Start 04/14/19 at 19:30 Pantoprazole (Protonix Iv) 40 mg BID@06,18 IV Last administered on 04/20/19at 06:06; Admin Dose 40 MG; Start 04/15/19 at 06:00 Ondansetron HCl (Zofran Inj) 4 mg Q4H PRN IV NAUSEA AND/OR VOMITING Last administered on 04/15/19at 05:16; Admin Dose 4 MG; Start 04/14/19 at 19:30 Hydralazine HCl (Apresoline) 10 mg Q4H PRN IV HIGH BP Last administered on 04/20/19at 14:03; Admin Dose 10 MG; Start 04/14/19 at 19:30 Clonidine HCl (Catapres-Tts 2 Patch) 1 patch Q7D TRANSDERM Last administered on 04/14/19at 19:55; Admin Dose 1 PATCH; Start 04/14/19 at 19:30 Diagnostic Test (Pha) (Accu-Chek) 1 ea 02 XX ; Start 04/15/19 at 02:00 Miscellaneous Information 1 ea NOTE XX ; Start 04/15/19 at 08:30 Glucose (Glutose) 15 gm Q15M PRN PO DECREASED GLUCOSE; Start 04/15/19 at 08:30 Glucose (Glutose) 22.5 gm Q15M PRN PO DECREASED GLUCOSE; Start 04/15/19 at 08:30 Dextrose (D50w Syringe) 25 ml Q15M PRN IV DECREASED GLUCOSE; Start 04/15/19 at 08:30 Dextrose (D50w Syringe) 50 ml Q15M PRN IV DECREASED GLUCOSE; Start 04/15/19 at 08:30 Glucagon (Glucagen) 1 mg Q15M PRN IM DECREASED GLUCOSE; Start 04/15/19 at 08:30 Glucose (Glutose) 15 gm Q15M PRN BUCCAL DECREASED GLUCOSE; Start 04/15/19 at 08:30 Polyethylene Glycol (Miralax) 17 gm DAILY PO Last administered on 04/19/19at 08:50; Admin Dose 17 GM; Start 04/18/19 at 09:00 Propranolol HCl (Inderal) 20 mg BID PO Last administered on 04/20/19at 08:47; Admin Dose 20 MG; Start 04/18/19 at 21:00 Bisacodyl (Dulcolax Supp) 10 mg Q48H PRN [place] CONSTIPATION; Start 04/19/19 at 09:00 Lubiprostone (Amitiza) 24 mcg BID PO ; Start 04/19/19 at 09:30 Amlodipine Besylate (Norvasc) 5 mg DAILY PO Last administered on 04/20/19at 08:48; Admin Dose 5 MG; Start 04/20/19 at 09:00 Ceftriaxone Sodium 50 ml @ 100 mls/hr Q24H IVPB Last administered on 04/20/19at 13:44; Admin Dose 100 MLS/HR; Start 04/20/19 at 13:00 Insulin Aspart (Novolog Insulin Pen) NOVOLOG *MILD* ALGORITHM WITH MEALS BEDTIM E SC Last administered on 04/20/19at 13:59; Admin Dose 1 UNIT; Start 04/19/19 at 21:00 GREGORY SIMMONS MD Apr 20, 2019 17:15
--- NOTE | 2019-04-21 08:00 | CONS ---
Consultation Date/Type/Reason Admit Date/Time Apr 14, 2019 at 17:07 Initial Consult Date 04/15/19 Type of Consult Oncology Reason for Consultation Liver cancer Requesting Provider: DOMINIK CHÁVEZ Date/Time of Note DATE: 04/20/19 TIME: 16:00 24 HR Interval Summary Free Text/Dictation Assessment/Plan Assessment/Plan Hospital Course (Demo Recall) #Hepatocellular Carcinoma - Liver mass- 04/01/2019- CT- showed a poorly defined hypodense mass within the right lobe measuring 6.5 x 6.1 cm concerning for neoplasm. - Patient stated he follows his oncologist Dr Jason Hilario in [facility]; who started him on Lenvima 8 mg po daily. will hold Lenvima in the hospital during this episode of acute GIB. pt can resume as an out patient after seeing Dr. Jason Hilario for whom patient already has follow up appointment for tomorrow. -AFP elevated to 2300 -liver bx not necessary at this time -will continue care with his oncologist as outpatient #Hypertension -New onset of systolic BP in 200s today -Held Discharge and was given Hydralazine -if BP becomes stable, will DC home today #Upper gastrointestinal bleeding -EGD demonstrates varices. pt is s/p banding #Diabetes mellitus. -,continue management per primary team # Hypertension. -continue management per primary team #Renal insufficiency -management per nephrology Thank you for the opportunity to participate in this patients care A total of 40 minutes of face to face time was spent speaking with the patient, of which greater than 50% was spent in counseling and coordination of care and the detailed question and answer session. Seen in collaboration with Dr. Shepard Exam/Review of Systems Exam Vitals Vital Signs Date Temp Pulse Resp B/P (MAP) Pulse Ox O2 O2 Flow FiO2 Time Delivery Rate 04/20/19 54 164/78 15:48 (106) 04/20/19 98.4 17 99 15:18 04/17/19 Room Air 15:22 Intake and Output 04/20/19 04/20/19 04/21/19 1515:00 23:00 07:00 IntakeIntake Total 700 ml 385 ml BalanceBalance 700 ml 385 ml Results Result Diagram: 04/20/19 0541 04/20/19 0542 Results 24hrs Laboratory Tests Test 04/20/19 12:08 04/20/19 17:31 Bedside Glucose 142 158 NETTE CRAIG NP Apr 21, 2019 08:00
== END 2019-04-20 18:59 | disposition home or self-care (01) | DRG 378 ==
LOC: TEL 17:07
PROVIDERS: ADMIT Internal Medicine; ATTEND Internal Medicine
PROC: 06L38CZ Occlusion of Esophageal Vein with Extraluminal Device, Via Natural or Artificial Opening Endoscopic (ICD-10-PCS; principal; 2019-04-15 14:30)
DX: K92.2 Gastrointestinal hemorrhage, unspecified (principal); C22.0 Liver cell carcinoma; N17.9 Acute kidney failure, unspecified; E87.2 Acidosis; K76.6 Portal hypertension; D69.6 Thrombocytopenia, unspecified; E11.21 Type 2 diabetes mellitus with diabetic nephropathy; E11.22 Type 2 diabetes mellitus with diabetic chronic kidney disease; N18.3 Chronic kidney disease, stage 3 (moderate); K74.60 Unspecified cirrhosis of liver; I12.9 Hypertensive chronic kidney disease with stage 1 through stage 4 chronic kidney disease, or unspecified chronic kidney disease; E78.5 Hyperlipidemia, unspecified; K31.89 Other diseases of stomach and duodenum; I85.10 Secondary esophageal varices without bleeding; Z79.4 Long term (current) use of insulin; Z87.891 Personal history of nicotine dependence
CPT/HCPCS: 80048; 80053; 82105; 82270; 82962; 83735; 84100; 84153; 84154; 85025; 85610; 85730; C9113; J0360; J0696; J1815; J2354; J2405; J7042; P9047

== ENCOUNTER 2019-05-16 02:21 | Inpatient (IN) | payer OTHER ==
[~2019-05-16] VITALS: Ht 157.5 cm; Wt 71.0 kg
[~2019-05-16 02:21] MED LIST changes: +BUME1TAB PO
[2019-05-16] MEDS ORDERED: FUROSEMIDE 40 MG INJ IV ONE (03:00)
[2019-05-16] MEDS ORDERED: AZITHROMYCIN 500MG/NS (PMX) 250 ML IVPB ONE (05:00)
[2019-05-16] MEDS ORDERED: CEFTRIAXONE 1 GM/50 ML (PMX) 50 ML IVPB ONE (05:00)
[2019-05-16 08:54] VITALS: Ht 157.5 cm; Wt 71.0 kg
[2019-05-16 09:16] VITALS: BP 160/78; PULSE 73; RESP 18
[2019-05-16 14:00] VITALS: BP 158/77; PULSE 76; RESP 19
[2019-05-16 16:11] VITALS: BP 166/84
[2019-05-16] MEDS ORDERED: traMADol 50 MG TAB PO PRN (17:00)
[2019-05-16] MEDS ORDERED: DOCUSATE SODIUM 100 MG CAP PO PRN (17:00)
[2019-05-16] MEDS ORDERED: BISACODYL (EC) 5 MG TAB PO PRN (17:00)
[2019-05-16] MEDS ORDERED: CEFTRIAXONE 1 GM/50 ML (PMX) 50 ML IVPB SCH (17:00)
[2019-05-16] MEDS: PANTOPRAZOLE (EC) 40 MG TAB PO SCH (17:11)
[2019-05-16] MEDS: LOSARTAN 25 MG TAB PO SCH (17:11)
[2019-05-16] MEDS: AMLODIPINE 10 MG TAB PO SCH (17:11)
[2019-05-16 19:43] VITALS: BP 156/79; PULSE 77; RESP 20
[2019-05-16] MEDS: PENTOXIFYLLINE (SR) 400 MG TAB PO SCH (23:10)
[2019-05-17 02:00] VITALS: BP 115/58; PULSE 72; RESP 16
[2019-05-17 08:11] VITALS: BP 146/69; PULSE 78; RESP 18
[2019-05-17] MEDS: ALLOPURINOL 100 MG TAB PO SCH (08:29)
[2019-05-17] MEDS: AZITHROMYCIN 250 MG TAB PO SCH (08:29)
[2019-05-17] MEDS: LINAGLIPTIN 5 MG TABLET PO SCH (08:29)
[2019-05-17] MEDS: PANTOPRAZOLE (EC) 40 MG TAB PO SCH (08:29)
[2019-05-17] MEDS: PENTOXIFYLLINE (SR) 400 MG TAB PO SCH ×2 (08:29→20:18)
[2019-05-17] MEDS: AMLODIPINE 10 MG TAB PO SCH (08:30)
[2019-05-17] MEDS: LOSARTAN 25 MG TAB PO SCH (08:30)
[2019-05-17] MEDS: CEFTRIAXONE 1 GM/50 ML (PMX) 50 ML IVPB SCH (08:30)
[2019-05-17] MEDS ORDERED: LENVIMA XX SCH (09:00)
[2019-05-17 14:52] VITALS: BP 134/72; PULSE 77; RESP 18
[2019-05-17] MEDS: BUMETANIDE 1 MG INJ IV SCH (17:32)
[2019-05-17] MEDS: LUBIPROSTONE 24 MCG CAP PO SCH (20:18)
[2019-05-17] MEDS: PROPRANOLOL 20 MG TAB PO SCH (20:19)
[2019-05-17 20:24] VITALS: BP 133/63; PULSE 75; RESP 20
[2019-05-18 02:51] VITALS: BP 130/71; PULSE 71; RESP 18
[2019-05-18] MEDS: BUMETANIDE 1 MG INJ IV SCH ×2 (06:39→18:15)
[2019-05-18] MEDS: [UNRECOGNIZED DRUG - OTHER] XX SCH ×3 (07:00→23:00)
[2019-05-18 08:00] VITALS: BP 144/74; PULSE 65; RESP 16
[2019-05-18] MEDS: CEFTRIAXONE 1 GM/50 ML (PMX) 50 ML IVPB SCH (08:58)
[2019-05-18] MEDS: AZITHROMYCIN 250 MG TAB PO SCH (08:58)
[2019-05-18] MEDS: ALLOPURINOL 100 MG TAB PO SCH (08:59)
[2019-05-18] MEDS: AMLODIPINE 10 MG TAB PO SCH (08:59)
[2019-05-18] MEDS: LUBIPROSTONE 24 MCG CAP PO SCH ×2 (08:59→21:20)
[2019-05-18] MEDS: PENTOXIFYLLINE (SR) 400 MG TAB PO SCH ×2 (08:59→21:20)
[2019-05-18] MEDS: PANTOPRAZOLE (EC) 40 MG TAB PO SCH (08:59)
[2019-05-18] MEDS: PROPRANOLOL 20 MG TAB PO SCH ×2 (09:00→21:21)
[2019-05-18] MEDS: LINAGLIPTIN 5 MG TABLET PO SCH (09:06)
[2019-05-18 14:00] VITALS: BP 139/75; PULSE 73; RESP 16
[2019-05-18 20:10] VITALS: BP 127/69; PULSE 66; RESP 20
[2019-05-19 02:50] VITALS: BP 126/70; PULSE 61; RESP 20
[2019-05-19] MEDS: BUMETANIDE 1 MG INJ IV SCH ×2 (05:38→17:02)
[2019-05-19] MEDS: [UNRECOGNIZED DRUG - OTHER] XX SCH ×3 (05:39→23:00)
[2019-05-19 08:00] VITALS: BP 136/84; PULSE 96; RESP 20
[2019-05-19] MEDS: PANTOPRAZOLE (EC) 40 MG TAB PO SCH (08:45)
[2019-05-19] MEDS: LUBIPROSTONE 24 MCG CAP PO SCH ×2 (08:45→21:22)
[2019-05-19] MEDS: PENTOXIFYLLINE (SR) 400 MG TAB PO SCH ×2 (08:45→21:22)
[2019-05-19] MEDS: AZITHROMYCIN 250 MG TAB PO SCH (08:46)
[2019-05-19] MEDS: ALLOPURINOL 100 MG TAB PO SCH (08:46)
[2019-05-19] MEDS: PROPRANOLOL 20 MG TAB PO SCH ×2 (08:46→21:25)
[2019-05-19] MEDS: AMLODIPINE 10 MG TAB PO SCH (08:46)
[2019-05-19] MEDS: LINAGLIPTIN 5 MG TABLET PO SCH (08:46)
[2019-05-19] MEDS: CEFTRIAXONE 1 GM/50 ML (PMX) 50 ML IVPB SCH (08:47)
[2019-05-19 14:00] VITALS: BP 155/74; PULSE 96; RESP 18
[2019-05-19 20:00] VITALS: BP 141/73; PULSE 67; RESP 18
[2019-05-20 02:00] VITALS: BP 137/72; PULSE 72; RESP 18
[2019-05-20] MEDS: BUMETANIDE 1 MG INJ IV SCH ×2 (06:29→17:48)
[2019-05-20] MEDS: [UNRECOGNIZED DRUG - OTHER] XX SCH ×3 (07:00→23:00)
[2019-05-20 08:00] VITALS: BP 155/80; PULSE 71; RESP 16
[2019-05-20] MEDS: PROPRANOLOL 20 MG TAB PO SCH ×2 (09:11→21:07)
[2019-05-20] MEDS: AZITHROMYCIN 250 MG TAB PO SCH (09:11)
[2019-05-20] MEDS: PENTOXIFYLLINE (SR) 400 MG TAB PO SCH ×2 (09:11→21:07)
[2019-05-20] MEDS: LUBIPROSTONE 24 MCG CAP PO SCH ×2 (09:11→21:07)
[2019-05-20] MEDS: AMLODIPINE 10 MG TAB PO SCH (09:11)
[2019-05-20] MEDS: CEFTRIAXONE 1 GM/50 ML (PMX) 50 ML IVPB SCH (09:11)
[2019-05-20] MEDS: ALLOPURINOL 100 MG TAB PO SCH (09:11)
[2019-05-20] MEDS: PANTOPRAZOLE (EC) 40 MG TAB PO SCH (09:11)
[2019-05-20] MEDS: LINAGLIPTIN 5 MG TABLET PO SCH (09:14)
[2019-05-20 14:00] VITALS: BP 118/73; PULSE 68; RESP 16
[2019-05-20 20:00] VITALS: BP 145/73; PULSE 69; RESP 18
[2019-05-21 01:36] VITALS: BP 138/65; PULSE 67; RESP 20
[2019-05-21] MEDS: BUMETANIDE 1 MG INJ IV SCH ×2 (05:48→17:05)
[2019-05-21] MEDS: [UNRECOGNIZED DRUG - OTHER] XX SCH ×3 (06:41→23:00)
[2019-05-21 08:00] VITALS: BP 152/74; PULSE 70; RESP 16
[2019-05-21] MEDS: LUBIPROSTONE 24 MCG CAP PO SCH ×2 (09:00→21:13)
[2019-05-21] MEDS: PANTOPRAZOLE (EC) 40 MG TAB PO SCH (09:30)
[2019-05-21] MEDS: AZITHROMYCIN 250 MG TAB PO SCH (09:31)
[2019-05-21] MEDS: PENTOXIFYLLINE (SR) 400 MG TAB PO SCH ×2 (09:31→21:13)
[2019-05-21] MEDS: ALLOPURINOL 100 MG TAB PO SCH (09:31)
[2019-05-21] MEDS: PROPRANOLOL 20 MG TAB PO SCH ×2 (09:32→21:13)
[2019-05-21] MEDS: LINAGLIPTIN 5 MG TABLET PO SCH (09:38)
[2019-05-21] MEDS: CITRIC ACID/NA CITRATE 30 ML CUP PO SCH ×2 (12:28→21:13)
[2019-05-21 14:00] VITALS: BP 127/64; PULSE 69; RESP 16
[2019-05-21 19:30] VITALS: BP 127/68; PULSE 66; RESP 16
[2019-05-22 01:58] VITALS: BP 110/55; PULSE 69; RESP 18
[2019-05-22] MEDS: BUMETANIDE 1 MG INJ IV SCH (05:15)
[2019-05-22] MEDS: [UNRECOGNIZED DRUG - OTHER] XX SCH (07:00)
[2019-05-22 08:30] VITALS: BP 127/68; PULSE 68; RESP 17
[2019-05-22] MEDS: LUBIPROSTONE 24 MCG CAP PO SCH (08:45)
[2019-05-22] MEDS: CITRIC ACID/NA CITRATE 30 ML CUP PO SCH (08:45)
[2019-05-22] MEDS: PANTOPRAZOLE (EC) 40 MG TAB PO SCH (08:45)
[2019-05-22] MEDS: LINAGLIPTIN 5 MG TABLET PO SCH (08:45)
[2019-05-22] MEDS: PENTOXIFYLLINE (SR) 400 MG TAB PO SCH (08:46)
[2019-05-22] MEDS: ALLOPURINOL 100 MG TAB PO SCH (08:46)
[2019-05-22] MEDS: PROPRANOLOL 20 MG TAB PO SCH (08:46)
== END 2019-05-22 12:40 | disposition home or self-care (01) | DRG 194 ==
LOC: E/R 02:21 → PP2 04:56 → EDBEDREQ 05:15
PROVIDERS: ADMIT Internal Medicine; ATTEND Internal Medicine
DX: J18.9 Pneumonia, unspecified organism (principal); C22.7 Other specified carcinomas of liver; N17.9 Acute kidney failure, unspecified; E87.1 Hypo-osmolality and hyponatremia; D61.818 Other pancytopenia; K76.6 Portal hypertension; I13.0 Hypertensive heart and chronic kidney disease with heart failure and stage 1 through stage 4 chronic kidney disease, or unspecified chronic kidney disease; I50.30 Unspecified diastolic (congestive) heart failure; E11.8 Type 2 diabetes mellitus with unspecified complications; N18.3 Chronic kidney disease, stage 3 (moderate); K74.60 Unspecified cirrhosis of liver; E78.5 Hyperlipidemia, unspecified; N50.89 Other specified disorders of the male genital organs; R33.9 Retention of urine, unspecified; Z79.899 Other long term (current) drug therapy
CPT/HCPCS: 36415; 71045; 80048; 80053; 80061; 81003; 82550; 82553; 82570; 82607; 82746; 82962; 83690; 83735; 83880; 83930; 83935; 84155; 84165; 84300; 84484; 84560; 85025; 85049; 85384; 85610; 85670; 85730; 89190; 93005; 93306; 93970; 96374; 96375; J0456; J0696; J1940